=== PATIENT | female | born 1990 | race Caucasian/White ===

== ENCOUNTER 2019-08-29 19:29 | Inpatient (IN) | payer MEDICAID, SELFPAY ==
[2019-08-29] VITALS (11 sets, daily range): BP systolic 0–185; BP diastolic 0–129; PULSE 66–110; RESP 16–18; TEMP 36.9–37.1; BMI 37.1
[2019-08-29 19:44] LABS: Basophils % 0.2 %; Eosinophils # 0.1 10^3/uL (0.0-0.8); Eosinophils % 0.6 %; Hematocrit 36.9 % (37.0-47.0); Hemoglobin 12.2 g/dL (11.5-15.3); Lymphocytes # 2.2 10^3/uL (0.8-4.8); Lymphocytes % 18.3 %; Mean Corpuscular HGB Conc 33.1 g/dL (30.0-36.0); Mean Corpuscular Hemoglobin 29.3 pg (28.0-34.0); Mean Corpuscular Volume 88.7 fL (81-99); Mean Platelet Volume 11.1 fL (7.4-10.4); Monocytes # 0.8 10^3/uL (0.2-0.9); Monocytes % 6.7 %; Neutrophils # 8.8 10^3/uL (1.8-7.7); Neutrophils % 73.8 %; Nucleated Red Blood Cells % 0 %; Platelet Count 266 10^3/cmm (130-400); Red Blood Count 4.16 10^6/uL (4.1-5.3); Red Cell Distribution Width 14.6 % (12.1-15.1); White Blood Count 11.9 10^3/uL (4.0-10.0)
[2019-08-29] MEDS: lactated ringers 1,000 ML 999 ML IV (19:56)
[2019-08-29] MEDS: ampicillin 2,000 MG in sodium chloride 0.9% (plus) 50 ML 100 MG IV (20:00)
[2019-08-29 20:01] LABS: Amphetamines Screen Urine Positive (Negative); Barbiturates Screen Urine Negative (Negative); Benzodiazepines Screen Urine Negative (Negative); Cocaine Screen Urine Negative (Negative); Opiate Screen Urine Positive (Negative); PCP Screen Urine Negative (Negative); THC Screen Urine Negative (Negative)
[2019-08-29] MEDS: miSOPROStol 200 mcg Tablet 800 MCG PR (21:22)
--- NOTE | 2019-08-29 21:39 | PM.DELIVERY ---
 Delivery Note: Date of delivery: August 29, 2019 This 29-year-old 5 now para 3 female with a paucity of care had spontaneous rupture membranes at home at approximately 1830. She arrived [facility] labor delivery and was found to be approximately 6 cm dilated with some moderate amount of bloody show. This physician was called and arrived and found her to be about 7 cm dilated with moderate bloody show. heart tones at that time looked reassuring. The patient desired epidural anesthesia but was unable to receive epidural anesthesia prior to dilating to complete cervical dilatation. The patient was found to be completely dilated at 2013 and delivered very quickly at 2014. The patient delivered in the bed prior to breaking down the bed as it happened very quickly. However, this physician was just outside and and arrived as the head was delivered. This physician delivered the remainder of the infant and suctioning the infant. The 8 pound 13 ounce female cried initially and was placed on mother's abdomen. However, the was brought directly over to the warmer immediately after the cord was cut. Infant Apgars were 5 and 6 and 7 at 1, 5 and 10 minutes respectively. The infant cried vigorously with stimulation but oxygen saturation was difficult to bring up. Approximately 6 mL of a bloody fluid was suctioned from the at the warmer. Mom did not tolerate much examination but there was no obvious tear seen. The placenta delivered spontaneously at 2026. There appeared to be possibly a little bit of hemorrhage around the margin of the placenta. The was brought to the nursery where she continues to be evaluated. Mom has had a mild bit of bleeding and was given misoprostol 800 mcg rectally. Pre-Delivery Course: This patient had very poor care. She was initially seen in [place] and then was later seen at [facility] for 1-2 visits. She was then seen by Dr. Irizarry at [facility] for 2 visits and then missed 2 appointments and was fired. As she was 38-1/2 weeks and was willing to come in and see me I saw this patient on Friday with an ultrasound and everything appeared to be doing well. records were then sent to [facility]. She had spontaneous rupture membranes this evening and delivered in less than 2 hours. Patient's urine drug screen was negative at the clinic last month but was positive on admission to the hospital here for methamphetamine and opiates. She states that she was taking hydrocodone 7.5 mg 3 times daily routinely. I am not sure where she gets those medications. She was on Keppra 500 mg in the morning and 750 mg in the evening for a known seizure disorder. Delivery: Precipitous spontaneous vaginal delivery. This physician was in attendance. Post-Delivery Status: Patient has had some moderate bleeding and was given misoprostol 800 mcg rectally x1. A&P Assessment and plan (1) Spontaneous vaginal delivery: Patient will be monitored closely for bleeding and will follow routine care. Urine drug screen will be sent for verification testing. Status: Acute (2) History of inadequate care: No adequate explanation as to lack of care. Status: Acute (3) Drug abuse and dependence: Drug screen was positive for methamphetamine and opiates here. We will send urine out for verification testing. Status: Acute (4) Seizure disorder during , delivered: Will continue her Keppra 500 mg in the morning and 750 mg in the evening. Status: Acute Coding Level of Care Code Acute Computer Peripheral Equipment Operator for [facility] Fwd Diagnoses Spontaneous vaginal delivery O80 History of inadequate care O09.30 Drug abuse and dependence F19.20 Seizure disorder during , delivered O99.354; G40.909
[2019-08-29] MEDS: HYDROcodone-acetaminophen 7.5-325 mg Tablet PO (21:53)
[2019-08-29] MEDS: hyDROXYzine 25 mg Capsule 50 MG PO (23:18)
--- NOTE | 2019-08-30 00:48 | PC.NURSE ---
Pt. has a history of drug abuse.
[2019-08-30 01:20] VITALS: BP 114/78; PULSE 84; RESP 16; TEMP 37
--- NOTE | 2019-08-30 01:24 | PC.NURSE ---
Pt. had hemorrhage post delivery of 1st baby.
[2019-08-30 02:20] VITALS: BP 135/82; PULSE 75; RESP 18; TEMP 36.8
--- NOTE | 2019-08-30 03:55 | PC.NURSE ---
This nurse to room to have patient sign AMA paperwork. IV discontinued. AR RN
--- NOTE | 2019-08-30 04:05 | PC.NURSE ---
08/30/2019 @ 0345 RN to room to ask patient about current case packer and sealer and open DFS cases. Patient denies having a case packer and sealer. Advised patient records indicate in court process for other children. Mother states Fuck this, Skipper, wake up we're leaving. I'm not staying here. Take this IV out of my fucking arm. RN responded You don't get to curse at me. I will call Dr Guzman and the warehouse distribution specialist and let you speak to them. Mother states, You can call them and you can beat feet out of my room to do it, bitch. Take this fucking IV out of my arm. RN advised patient, I won't take the IV out until I have spoken to Dr Guzman. 08/30/2019 @[address] Guzman and advised patient was requesting to have IV discontinued and to leave at this time. Advised Dr Guzman that patient was cursing RN and becoming increasingly agitated. Dr Guzman states to discontinue IV and have patient sign AMA form if she will. college associate, Software Security Architect and Dr Guzman all notified. Software Security Architect has Security come to OB floor to escort patient and FOB off unit after AMA form is signed.
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
--- NOTE | 2019-08-30 06:12 | PC.NURSE ---
Pt. left AMA and I was unable to get a set of VS prior to discharge.
--- NOTE | 2019-09-08 11:04 | P.DS_ITS ---
Discharge Providers SOLUTION COORDINATOR Date of Admission: 08/29/19 19:29 Date of Discharge: 09/08/19 Attending Provider at Admission: Sundar Guzman MD Attending Provider at Discharge: Sundar Guzman MD Primary Care Provider: Sarah Douglas DO Diagnoses at Discharge Discharge Diagnosis (1) Spontaneous vaginal delivery: Status: Acute Problem details: Patient delivered without significant problem after spontaneous onset of labor. She has done well with mild lochia. She signed out plating tank operator apprentice of discharge against medical advice. (2) History of inadequate care: Status: Acute Problem details: Patient had no significant problem with labor and delivery. The infant, however had some persistant respiratory distress and required transfer to [facility] [place]. (3) Drug abuse and dependence: Status: Acute Problem details: Patient tested positive for opiates and methamphetamine and was thus reported to family services. She became defensive when questioned by nursing staff and signed out AMA. (4) Seizure disorder during , delivered: Status: Acute Problem details: stable on meds. Reason for Visit Reason for Visit: Reason For Visit: abd pain Hospital Course Hospital Course: Patient delivered by spontaneous vaginal delivery without difficulties. She had a mildly atonic uterus that was treated with Misoprostel rectally. She was doing well otherwise. As described above, she became angry with questioning and left against medical advice. Information Peripartum Data: Delivery Method: Vaginal Physical Exam Narrative: EXAM NARRATIVE: Exam was not done immediately prior to discharge due to the patient signing out AMA. Discharge Data Data Completed and Pending: Completed Studies During Hospitalization Category Date Time Status Pathology: Surgic al [PTH] Routine Pth 08/30/19 07:40 Completed Pending at discharge Category Date Time Status Methamphetamines Screen Urine Routi ne Lab 08/29/19 07:48 Ordered Vitals: Last Vital Signs Temp 98.3 F 08/30/19 02:20 Pulse 75 08/30/19 02:20 Resp 18 08/30/19 02:20 BP 135/82 08/30/19 02:20 Discharge Plan Discharge Patient Disposition: Home, Self-Care Prescriptions: No Action Keppra 500 mg Tablet 500 mg PO QAM RF: 0 Keppra 750 mg Tablet 750 mg PO BEDTIME RF: 0 28 mg iron- 800 mcg Tablet PO DAILY RF: 0 hydrocodone-acetaminophen 7.5-325 mg Tablet 1 tab PO QID PRN (Reason: Pain) RF: 0 Patient Instructions: Perineal Care (DC) Discharge Date/Time: 08/30/19 04:00 Discharge Attestations SOLUTION COORDINATOR Time Spent in Discharge Care*: less than 30 min Specific Discharge Activities: Specific discharge activities: docu menting/other paperwork Coding Level of Care Code Acute Break And Load Operator for [facility] Fwd Diagnoses Spontaneous vaginal delivery O80 History of inadequate care O09.30 Drug abuse and dependence F19.20 Seizure disorder during , delivered O99.354; G40.909
== END 2019-08-30 04:00 | disposition home or self-care (01) | DRG 806 ==
LOC: OPOB 19:29
PROVIDERS: Admitting Provider Family Medicine; Family Provider Family Medicine; PCP Family Medicine; Visit Provider Family Medicine
DX: O62.3 Precipitate labor (principal); O99.324 Drug use complicating childbirth; Z37.0 Single live birth; Z3A.38 38 weeks gestation of pregnancy; F11.229 Opioid dependence with intoxication, unspecified; O67.8 Other intrapartum hemorrhage
CPT/HCPCS: 12345; 59409; 80306; 80359; 85025; 88307; 99211; J0290

== ENCOUNTER 2019-09-09 19:58 | Emergency (ER) | payer MEDICAID, SELFPAY | END 2019-09-10 01:31 | disposition admitted as inpatient to this hospital (09) | LOC: ER 09-10 07:04 | PROVIDERS: Emergency Provider Emergency Medicine; Family Provider Family Medicine | DX: O72.2 Delayed and secondary postpartum hemorrhage (principal); F17.210 Nicotine dependence, cigarettes, uncomplicated | CPT/HCPCS: 36415; 76856; 85025; 86850; 86900; 96361; 96374; 96375; 99283; 99285; J2270; J2405; J7030 ==

== ENCOUNTER 2019-09-09 19:58 | Inpatient (IN) | payer MEDICAID, SELFPAY ==
[2019-09-09] VITALS (19 sets, daily range): BP systolic 145–177; BP diastolic 94–128; PULSE 86–106; RESP 11–24; TEMP 36.8; O2SAT 95–99; BMI 35.2
--- NOTE | 2019-09-09 20:03 | USR_ITS ---
PROCEDURE INFORMATION: Exam: US Pelvis Complete, Transabdominal and US Duplex Artery and Vein, Ovaries, Complete Exam date and time: 09/09/2019 9:29 PM Age: 29 years old Clinical indication: Other: Vag bleeding with large clots; Patient HX: 10 day post part TECHNIQUE: Imaging protocol: Real-time transabdominal pelvic ultrasound with image documentation. Real-time duplex ultrasound scan of the arterial and venous flow of the ovaries with B-mode, color Doppler flow and spectral waveform analysis. Complete Pelvis, Complete Duplex. COMPARISON: US BPP w/o NST [id number] 03/03/2018 4:58 PM FINDINGS: Uterus/cervix: The uterus measures 11.2 x 6.9 x 7.7 cm. There is heterogeneous echogenicity within the endometrial cavity. There is fluid in soft tissue echogenicity with a complex appearance concerning for blood clots/retained products of conception. This measures 2.1 x 9.6 cm. Right adnexa: The right ovary measures 2.9 x 2.1 x 2.2 cm. The right ovary is unremarkable. Doppler evaluation of the right ovary was performed and demonstrates good arterial and venous flow. No torsion. Left adnexa: The left ovary measures 2.8 by 2.0 x 2.3 cm. The left ovary is unremarkable in appearance. Doppler evaluation left ovary was performed and demonstrates good arterial and venous flow. No torsion. Free fluid: No free fluid in the pelvis. Bladder: Normal. US/US pelvic complete* [id number] IMPRESSION: 1. Heterogeneous fluid and soft tissue density distending the endometrial cavity concerning for retained products of conception/blood clots. 2. Unremarkable ovaries. No torsion.
--- NOTE | 2019-09-09 20:10 | W.ED.FEMALGU ---
HPI - Female Genitourinary General: Chief complaint: Urogenital-Female Stated complaint: VAG HEM Time Seen by Provider: 09/09/19 20:10 Source: patient and EMS Mode of arrival: EMS Limitations: physical limitation History of Present Illness: HPI Narrative: 29-year-old female who gave August 28 vaginally states over the last 2 days she has had heavy bleeding. She states she is went through roughly 12 pads and is been passing clots. She has had abdominal cramping as well. She denies any worsening improving factors. MD elicited complaint: vaginal bleeding Onset (ago): day(s) Severity: moderate Vaginal discharge: none Vaginal bleeding: moderate Exacerbating factors: none Relieving factors: none Associated symptoms: Reports abdominal pain; Deny headache(s) or nausea Review of Systems Const: Denies: fever, chills, body aches or change in appetite Eyes: Denies: blurry vision or eye discomfort ENMT: Denies: throat pain or dental pain Card: Denies: chest pain Resp: Denies: shortness of breath GI: Reports: abdominal pain; Denies: nausea, vomiting or diarrhea : Reports: vaginal bleeding; Denies: painful urination Musc: Denies: neck pain or back pain Skin/Breast: Denies: rash Neuro: Denies: headache Psych: Denies: depression Kunal/Lymph: Denies: easy bruising All/Imm: Denies: hives PFSH ED PFSH: Social History Smoking and tobacco status: current every day smoker Physical Exam Const: COMMON NORMALS: no apparent distress, oriented x3 and healthy appearing HENMT: COMMON NORMALS: normocephalic and head/scalp atraumatic HEAD & SCALP: normocephalic and atraumatic Eye: COMMON NORMALS: PERRL and EOMs intact bilaterally PUPIL: Yes PERRL Neck/C-Spine: COMMON NORMALS: full ROM and supple Chest: COMMONS NORMALS: inspection of chest normal and palpation of chest normal Resp: COMMON NORMALS: normal respiratory effort, no retractions, no use of accessory muscles and clear to auscultation bilaterally AUSCULTATION: clear to auscultation bilaterally Cardio: COMMON NORMALS: regular rate, regular rhythm and no murmurs RATE: regular rate RHYTHM: regular rhythm GI: COMMON NORMALS: normal to inspection, nondistended, normoactive bowel sounds, soft to palpation, non-tender and no masses PALPATION: Yes soft Extremity: COMMON NORMALS: normal to inspection and full ROM Neuro: COMMON NORMALS: oriented x3, moves all extremities and no focal motor deficits Psych: COMMON NORMALS: mental status grossly normal, thought process normal and cooperative THOUGHT PROCESS: normal thought process Skin: COMMON NORMALS: no rashes or lesions noted and no wounds GENERAL SKIN EXAM: no rashes or lesions noted Course Vital Signs: Vital signs: Vital Signs Temperature 98.2 F 09/09/19 20:01 Pulse Rate 88 09/09/19 21:36 Respiratory Rate 16 09/09/19 21:36 Blood Pressure 157/98 09/09/19 21:36 Pulse Oximetry 97 09/09/19 21:36 MDM - Female MDM Narrative: Medical decision making narrative: Patient presents here with vaginal bleeding with ultrasound showing possible retained products. Patient is hemodynamically stable. I spoke to her physician Dr. Guzman who recommended OB admission for D&C. I did speak to Dr. Ag who will admit Trinity. Patient has been stable while down here. Lab Data: Labs: Lab Results 09/09/19 Range/Units 20:00 WBC 9.9 (4.0-10.0) 10^3/ uL RBC 4.22 (4.1-5.3) 10^6/u L Hgb 12.0 (11.5-15.3) g/dL Hct 37.4 (37.0-47.0) % MCV 88.6 (81-99) fL MCH 28.4 (28.0-34.0) pg MCHC 32.1 (30.0-36.0) g/dL RDW 13.7 (12.1-15.1) % Plt Count 427 H (130-400) 10^3/c mm MPV 9.5 (7.4-10.4) fL Neut % (Auto) 65.6 % Lymph % (Auto) 23.1 % [place] % (Auto) 9.4 % Eos % (Auto) 1.2 % Baso % (Auto) 0.3 % Neut # (Auto) 6.5 (1.8-7.7) 10^3/u L Lymph # (Auto) 2.3 (0.8-4.8) 10^3/u L [place] # (Auto) 0.9 (0.2-0.9) 10^3/u L Eos # (Auto) 0.1 (0.0-0.8) 10^3/u L Baso # (Auto) 0.0 (0.0-0.1) 10^3/u L Nucleated RBC % (a uto) 0 % Nucleated RBCs # 0.0 /100WBC Imaging Data: US OB: Radiologist's impression: [address] [address] Ultrasound Report Signed Patient: Trinity Chao Unit #: [id number] : 1990 Age/Sex: 29 / F ADM Date: 09/09/19 Loc: ER Room/Bed: Attending Dr: Ordering Provider/Ordering MD: Duyen Figueroa MD Date of Service: 09/09/19 Procedure(s): US pelvic complete* [id number] Accession Number(s): [id number] Report Number: [id number] PROCEDURE INFORMATION: Exam: US Pelvis Complete, Transabdominal and US Duplex Artery and Vein, Ovaries, Complete Exam date and time: 09/09/2019 9:29 PM Age: 29 years old Clinical indication: Other: Vag bleeding with large clots; Patient HX: 10 day post part TECHNIQUE: Imaging protocol: Real-time transabdominal pelvic ultrasound with image documentation. Real-time duplex ultrasound scan of the arterial and venous flow of the ovaries with B-mode, color Doppler flow and spectral waveform analysis. Complete Pelvis, Complete Duplex. COMPARISON: US BPP w/o NST [id number] 03/03/2018 4:58 PM FINDINGS: Uterus/cervix: The uterus measures 11.2 x 6.9 x 7.7 cm. There is heterogeneous echogenicity within the endometrial cavity. There is fluid in soft tissue echogenicity with a complex appearance concerning for blood clots/retained products of conception. This measures 2.1 x 9.6 cm. Right adnexa: The right ovary measures 2.9 x 2.1 x 2.2 cm. The right ovary is unremarkable. Doppler evaluation of the right ovary was performed and demonstrates good arterial and venous flow. No torsion. Left adnexa: The left ovary measures 2.8 by 2.0 x 2.3 cm. The left ovary is unremarkable in appearance. Doppler evaluation left ovary was performed and demonstrates good arterial and venous flow. No torsion. Free fluid: No free fluid in the pelvis. Bladder: Normal. US/US pelvic complete* [id number] IMPRESSION: 1. Heterogeneous fluid and soft tissue density distending the endometrial cavity concerning for retained products of conception/blood clots. 2. Unremarkable ovaries. No torsion. Discharge Plan Discharge Patient Disposition: Admitted As Inpatient Clinical Impression: Retained products of conception Condition: Stable Referrals: Mackenzie Holley DO [Family Provider] - Coding Level of Care Code ED Volunteer Specialist for [facility] Fwd Exam Comprehensive
[2019-09-09 20:12] LABS: Basophils % 0.3 %; Eosinophils # 0.1 10^3/uL (0.0-0.8); Eosinophils % 1.2 %; Hematocrit 37.4 % (37.0-47.0); Lymphocytes # 2.3 10^3/uL (0.8-4.8); Lymphocytes % 23.1 %; Mean Corpuscular HGB Conc 32.1 g/dL (30.0-36.0); Mean Corpuscular Hemoglobin 28.4 pg (28.0-34.0); Mean Corpuscular Volume 88.6 fL (81-99); Mean Platelet Volume 9.5 fL (7.4-10.4); Monocytes # 0.9 10^3/uL (0.2-0.9); Monocytes % 9.4 %; Neutrophils # 6.5 10^3/uL (1.8-7.7); Neutrophils % 65.6 %; Nucleated Red Blood Cells % 0 %; Platelet Count 427 10^3/cmm (130-400); Red Blood Count 4.22 10^6/uL (4.1-5.3); Red Cell Distribution Width 13.7 % (12.1-15.1); White Blood Count 9.9 10^3/uL (4.0-10.0)
[2019-09-09] MEDS: morphine 4 mg/mL SDV 1 mL IVP (20:21)
[2019-09-09] MEDS: ondansetron 2 mg/ML SDV 2 mL 4 MG IVP (20:22)
[2019-09-09] MEDS: sodium chloride 0.9% 1,000 ML 999 ML IV (20:22)
--- NOTE | 2019-09-09 21:55 | PC.NURSE ---
Pt provided with Apple juice.
[2019-09-10] VITALS (19 sets, daily range): BP systolic 101–171; BP diastolic 67–128; PULSE 79–99; RESP 10–26; TEMP 36.7–37; O2SAT 97–100
[2019-09-10] MEDS: morphine 4 mg/mL SDV 1 mL IVP (02:31)
[2019-09-10] MEDS: lactated ringers 1,000 ML 100 ML IV (02:31)
[2019-09-10 04:55] LABS: Basophils % 0.3 %; Eosinophils # 0.1 10^3/uL (0.0-0.8); Eosinophils % 1.6 %; Hematocrit 36.4 % (37.0-47.0); Hemoglobin 11.4 g/dL (11.5-15.3); Lymphocytes % 27.1 %; Mean Corpuscular HGB Conc 31.3 g/dL (30.0-36.0); Mean Corpuscular Hemoglobin 28.6 pg (28.0-34.0); Mean Corpuscular Volume 91.2 fL (81-99); Mean Platelet Volume 9.4 fL (7.4-10.4); Monocytes # 0.7 10^3/uL (0.2-0.9); Monocytes % 9.7 %; Neutrophils # 4.6 10^3/uL (1.8-7.7); Nucleated Red Blood Cells % 0 %; Platelet Count 310 10^3/cmm (130-400); Red Blood Count 3.99 10^6/uL (4.1-5.3); Red Cell Distribution Width 13.6 % (12.1-15.1); White Blood Count 7.5 10^3/uL (4.0-10.0)
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
== END 2019-09-10 07:00 | disposition left against medical advice (07) | DRG 776 ==
LOC: ER 21:48 → MEDSURG 22:57
PROVIDERS: Admitting Provider Obstetrics & Gynecology; Emergency Provider Emergency Medicine; Family Provider Family Medicine; Visit Provider Obstetrics & Gynecology
DX: O72.1 Other immediate postpartum hemorrhage (principal); O99.335 Smoking (tobacco) complicating the puerperium; F17.210 Nicotine dependence, cigarettes, uncomplicated
CPT/HCPCS: 12345; 36415; 76856; 85025; 86850; 86900; 96374; 96375; 99283; A9270; J2270; J2405; J7030

== ENCOUNTER 2019-09-10 13:53 | Emergency (ER) | payer MEDICAID, SELFPAY ==
[2019-09-10 14:09] VITALS: BP 140/84; PULSE 103; RESP 18; TEMP 36.7; O2SAT 99; BMI 35.2
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
[2019-09-10 15:27] LABS: Basophils % 0.3 %; Eosinophils # 0.1 10^3/uL (0.0-0.8); Eosinophils % 1.8 %; Hemoglobin 11.3 g/dL (11.5-15.3); Lymphocytes # 1.3 10^3/uL (0.8-4.8); Mean Corpuscular HGB Conc 31.4 g/dL (30.0-36.0); Mean Corpuscular Hemoglobin 28.3 pg (28.0-34.0); Mean Platelet Volume 9.3 fL (7.4-10.4); Monocytes # 0.7 10^3/uL (0.2-0.9); Monocytes % 8.3 %; Neutrophils # 5.7 10^3/uL (1.8-7.7); Neutrophils % 72.2 %; Nucleated Red Blood Cells % 0 %; Platelet Count 317 10^3/cmm (130-400); Red Cell Distribution Width 13.5 % (12.1-15.1); White Blood Count 7.8 10^3/uL (4.0-10.0)
[2019-09-10 15:40] LABS: Alanine Aminotransferase 18 U/L (0-33); Albumin Level 3.9 g/dL (3.5-5.2); Alkaline Phosphatase 114 IU/L (35-105); Anion Gap 16.8 (5-19); Aspartate Amino Transferase 16 U/L (0-32); Blood Urea Nitrogen 11 mg/dL (6-20); Carbon Dioxide 25 mmol/L (22-29); Chloride 99 mmol/L (98-107); Glomerular Filtration Rate 119.9 mL/min (90-130); Glucose 91 mg/dL (65-115); Osmolality Calculated 280 mOsm/kg (285-295); Potassium 3.8 mmol/L (3.5-5.1); Sodium 137 mmol/L (136-145); Total Bilirubin 0.7 mg/dL (0.15-1.2); Total Protein 6.9 g/dL (6.6-8.7)
--- NOTE | 2019-09-10 16:22 | PC.NURSE ---
went into patients room to obtain iv access, pt was putting coat on, talking on the phone and told me to hold on. I advised the patient that i needed to obtain an iv. pt started to grab her bag, still on the phone. pt told me to hold on, while on the phone she referred to this nurse as this complete fucking idiot nurse is here trying to bother me . she grabbed her belongings and started to walk out the door. while walking down the hallway, she told me to go suck a rosa marilyn benitez as she walked down the suárez.
== END 2019-09-10 16:20 | disposition still patient (30) ==
PROVIDERS: Emergency Provider Nurse Practitioner Family; Family Provider Family Medicine; PCP Family Medicine
DX: O72.2 Delayed and secondary postpartum hemorrhage (principal); Z53.21 Procedure and treatment not carried out due to patient leaving prior to being seen by health care provider
CPT/HCPCS: 36415; 80053; 85025; 99281

== ENCOUNTER 2019-10-08 09:32 | Emergency (ER) | payer MEDICAID, SELFPAY ==
[2019-10-08 09:33] VITALS: BP 131/75; PULSE 95; RESP 18; TEMP 37.1; O2SAT 97; BMI 33.9
--- NOTE | 2019-10-08 09:43 | W.ED.OVERDOS ---
HPI - Overdose General: Chief Complaint: Overdose Stated Complaint: OVERDOSE Time Seen by Provider: 10/08/19 09:40 Source: patient Mode of arrival: EMS Limitations: no limitations History of Present Illness: HPI Narrative: Patient is a 29-year-old female brought in by EMS for complaints of an overdose. Patient tells me approximately 30 minutes ago she took a fentanyl/heroin pill. Patient states she has a longstanding history of narcotic abuse. She admitted to RN before my exam that she uses methamphetamines daily as well. Upon arrival patient is alert and oriented however does appear drowsy. She did not take pill in a suicide or self harming attempt. She states she was told by a friend it was a happy pill . complaint: other (took heroin/fentanyl pill ) Onset (ago): minute(s) : Context: Accidental Overdose: wanted to get high Treatments Prior to Arrival: none Review of Systems Const: Denies: fever(s) or chills Eyes: Denies: change in vision, blurry vision, photophobia, floaters or seeing flashes Card: Reports: chest pain; Denies: palpitations, irregular heart rhythm, lightheadedness, syncope or dyspnea on exertion Resp: Denies: dyspnea, productive cough or pain on inspiration GI: Denies: abdominal pain, nausea, vomiting, heartburn or diarrhea : Denies: flank pain or dysuria Musc: Denies: neck pain, back pain or joint pain Skin/Breast: Denies: rash Neuro: Reports: other (drowsiness ); Denies: headache(s), numbness in extremities, weakness in extremities or sensory changes PFS ED PFSH: Social History Smoking and tobacco status: current every day smoker Physical Exam Const: COMMON NORMALS: no acute distress, patient oriented x3 and alert GENERAL APPEARANCE: cooperative ORIENTATION/CONSCIOUSNESS: Yes awake, Yes oriented to person, Yes oriented to place and Yes oriented to time OTHER: drowsy but answering questions appropriately HENMT: COMMON NORMALS: normocephalic and atraumatic HEAD & SCALP: normocephalic and atraumatic Resp: COMMON NORMALS: normal respiratory effort and clear to auscultation bilaterally AUSCULTATION: clear to auscultation bilaterally Cardio: COMMON NORMALS: regular rate and regular rhythm RATE: regular rate RHYTHM: regular rhythm GI: COMMON NORMALS: Normal to inspection, nondistended, normoactive bowel sounds present, Soft to palpation, non-tender, No hepatosplenomegaly present and no masses PALPATION: Yes Soft to palpation and Yes No hepatosplenomegaly present Extremity: COMMON NORMALS: normal to inspection Neuro: MALKA COMA SCALE: document GCS findings [place] coma scale eye opening: Spontaneous [place] coma scale verbal response: Orientated [place] coma scale motor response: Obey commands [place] coma scale total score: 15 COMMON NORMALS: patient oriented x3, CN's II-XII intact bilaterally, moves all extremities, no focal motor deficits and no sensory deficits noted SENSORIUM/ORIENTATION: Yes alert, Yes oriented to person, Yes oriented to place and Yes oriented to time Skin: COMMON NORMALS: no rashes or lesions noted GENERAL SKIN EXAM: no rashes or lesions noted Course Vital Signs: Vital signs: Vital Signs Temperature 98.7 F 10/08/19 09:33 Pulse Rate 109 H 10/08/19 10:18 Respiratory Rate 17 10/08/19 10:18 Blood Pressure 133/83 10/08/19 10:18 Pulse Oximetry 100 10/08/19 10:18 MDM - Overdose MDM Narrative: Medical decision making narrative: Patient was given Narcan and shortly after ripped out her IV and eloped from the ED. I was unaware of this until patient was already gone. Discharge Plan Discharge Patient Disposition: Left Against Medical Advice Clinical Impression: Opiate abuse, episodic Prescriptions: No Action levetiracetam [Keppra] 500 mg Tablet 500 mg PO QAM RF: 0 levetiracetam [Keppra] 750 mg Tablet 750 mg PO BEDTIME RF: 0 PNV cmb#95-ferrous fumarate-FA [] 28 mg iron- 800 mcg Tablet 1 tab PO DAILY RF: 0 Advair Diskus 250-50 mcg/dose Blister With Device 1 inh INHALATION BID RF: 0 alprazolam 0.5 mg tablet See Rx Instructions .ROUTE .COMPLEX RF: 0 ziprasidone HCl 40 mg capsule 40 mg PO BID RF: 0 Ventolin HFA 90 mcg/actuation Hfa Aerosol Inhaler 2 puff INHALATION Q4H PRN (Reason: Shortness Of Breath) RF: 0 cranberry 1 - 2 tab PO PRN RF: 0 Referrals: Mackenzie Holley DO [Primary Care Provider] - Interventions: ED Discharge Assessment Last Done: 10/08/19 10:30 ED Charges Last Done: 10/08/19 10:30 Discharge Date/Time: 10/08/19 10:30 Coding Level of Care Code ED Supervisor [employer] for Alessandro Treviño
[2019-10-08] MEDS: naloxone 0.4 mg/ml SDV IVP (10:14)
[2019-10-08] MEDS: sodium chloride 0.9% 1,000 ML 999 ML IV (10:14)
[2019-10-08 10:18] VITALS: BP 133/83; PULSE 109; RESP 17; O2SAT 100
[2019-10-13 14:40] LABS: Levetiracetam Keppra 10.7 mcg/mL
== END 2019-10-08 10:30 | disposition left against medical advice (07) ==
LOC: ER 10:28
PROVIDERS: Emergency Provider Physician Assistant; Family Provider Family Medicine; PCP Family Medicine
DX: F11.10 Opioid abuse, uncomplicated (principal); Z53.21 Procedure and treatment not carried out due to patient leaving prior to being seen by health care provider; F17.210 Nicotine dependence, cigarettes, uncomplicated
CPT/HCPCS: 12345; 80177; 85025; 96361; 96374; 96375; 99282; 99284; J2310; J7030

== ENCOUNTER 2021-08-28 13:08 | Emergency (ER) | payer MEDICAID, SELFPAY ==
[2021-08-28 13:25] VITALS: BP 157/85; PULSE 99; RESP 18; TEMP 36.8; O2SAT 97; BMI 32.5
--- NOTE | 2021-08-28 14:17 | CT_ITS ---
WS: [id number] CT FACIAL BONES HISTORY: trauma TECHNIQUE: Images obtained from the supraorbital location through the mandible. Soft tissue and bone windows are reviewed. Coronal and sagittal reformats have also been submitted. DLP: 744.[address] scans at [facility] use at least one of these dose optimization techniques: automated e xposure control; mA and/or kV adjustment per patient size (includes targeted exams where dose is matc hed to clinical indication); or iterative reconstruction. COMPARISON: None available. Nondisplaced small avulsion fracture from the anterior nasal spine. The nasal bones are intact. Very slight rightward curvature of the nasal septum with spurring. Zygomatic arches are intact. There is a lucency through the anterior maxilla but I believe this is well-corticated and not a fracture. Media l and lateral pterygoid plates are intact. No air-fluid levels within the sinuses. Normal optic nerves, globes and orbits. CT/CT facial bones wo con* [id number] IMPRESSION: 1. Small avulsion fractures from the anterior nasal spine. 2. No nasal bone fractures.
--- NOTE | 2021-08-28 14:18 | ED_ITS ---
HPI - Fall General: Chief Complaint: Head Injury Stated Complaint: facial injuries due to seizure on 08/25/21 Time Seen by Provider: 08/28/21 13:35 Source: patient Mode of arrival: ambulatory Limitations: no limitations History of Present Illness: Patient is a 31-year-old female presents to ED today for evaluation of facial trauma. Patient tells me 2 days ago she had a seizure and believes she struck her face when she fell/lost consciousness. Patient states she does have a history of epilepsy that she treats with [place]. She states prior to 2 days ago she had not had a seizure in many years. She is not had any changes to her medications recently. She states she was being followed with neurology but does not have a neurologist here in town. She does not complain of a headache, neck pain, back pain. She states she has noticed swelling to the right side of her face and nose. MD complaint: fall Onset (ago): day(s) Fall from: standing Fall witnessed: no Place fall occurred: home Loss of consciousness: Yes Length of LOC: second(s) Prolonged down time: no Symptoms prior to fall: other (siezure) Context: seizure Location of injury: face Associated symptoms-after fall: Reports no associated symptoms; Denies abdominal pain, chest pain, headache(s), lightheadedness or neck pain Review of Systems Const: Denies: fever(s), chills or body aches Eyes: Denies: change in vision, blurry vision, photophobia, floaters or seeing flashes ENMT: Reports: sinus pain; Denies: ear or mastoid pain, ear discharge, change in hearing, nasal discharge, nasal congestion, epistaxis or post nasal drip Card: Denies: chest pain, palpitations, irregular heart rhythm, edema, lightheadedness, syncope or pre-syncope Resp: Denies: dyspnea GI: Denies: abdominal pain, nausea or vomiting Musc: Denies: neck pain, back pain, extremity pain or joint pain Skin/Breast: Denies: rash Neuro: Denies: headache(s), numbness in extremities, weakness in extremities, sensory changes or dizziness PFS ED PFSH: Social History Smoking and tobacco status: current every day smoker Physical Exam Const: COMMON NORMALS: no acute distress, patient oriented x3, no limitations and alert NUTRITIONAL APPEARANCE: overweight ORIENTATION/CONSCIOUSNESS: Yes awake, Yes oriented to person, Yes oriented to place and Yes oriented to time HENMT: COMMON NORMALS: normocephalic, atraumatic, external ears normal, EAC's normal and TM's normal bilaterally HEAD & SCALP: normal to inspection, normocephalic and atraumatic FACE & SINUS: other (TTP R inferior orbital wall, R maxillary region, and nose; mild swelling) NOSE: Normal septum present and Other nasal findings present (swelling to external nasal bridge; no septal hematoma) EXTERNAL EAR: Yes external ears normal EXTERNAL AUDITORY CANAL: EAC's normal TYMPANIC MEMBRANE: TM's normal bilaterally MOUTH: Normal oral and palatal mucosa present, tongue normal and other (mild swelling to upper lip; no intraoral trauma noted ) TEETH & GINGIVA: Yes poor dentition Eye: COMMON NORMALS: Equal, round and reactive pupils present and EOMs intact bilaterally GENERAL EYE: appearance normal, both eyes and all related structures PUPIL: Yes Equal, round and reactive pupils present Neck/C-Spine: COMMON NORMALS: full ROM CERVICAL SPINE: Yes cervical ROM normal, No pain with cervical ROM, No Cervical spine tenderness, No step off deformity and No Paracervical muscle tenderness Chest: COMMONS NORMALS: normal inspection of the chest and normal palpation of entire chest wall Resp: COMMON NORMALS: normal respiratory effort and clear to auscultation bilaterally AUSCULTATION: clear to auscultation bilaterally Cardio: COMMON NORMALS: regular rate and regular rhythm RATE: regular rate RHYTHM: regular rhythm Back/Pelvis: COMMON NORMALS: thoracic and lumbar spine normal to inspection, no thoracic nor lumbar tenderness and thoraco-lumbar ROM normal Extremity: COMMON NORMALS: normal to inspection and full ROM GENERAL: Yes normal exam except as noted Neuro: EDEL COMA SCALE: document GCS findings [place] coma scale eye opening: Spontaneous [place] coma scale verbal response: Orientated [place] coma scale motor response: Obey commands [place] coma scale total score: 15 COMMON NORMALS: patient oriented x3, CN's II-XII intact bilaterally, moves all extremities, no focal motor deficits, no sensory deficits noted and gait normal SENSORIUM/ORIENTATION: Yes alert, Yes oriented to person, Yes oriented to place and Yes oriented to time Skin: COMMON NORMALS: no rashes or lesions noted GENERAL SKIN EXAM: no rashes or lesions noted TRAUMA: no lacerations or abrasions Course Vital Signs: Vital signs: Vital Signs Temperature 98.3 F 08/28/21 13:25 Pulse Rate 99 08/28/21 13:25 Respiratory Rate 18 08/28/21 13:25 Blood Pressure 157/85 08/28/21 13:25 Pulse Oximetry 97 08/28/21 13:25 MDM - Fall Medical Decision Making We will place case management referral to get her set up with a neurologist here in town for other evaluation/treatment of her seizures. CT scan shows a small avulsion fracture of the anterior nasal spine. She does have very slight rightward curvature of the nasal septum with spurring. Small lucency through the anterior maxilla that is well-corticated and radiologist thought probably was not indicative of a fracture. We will go ahead and refer her to ENTf for definitive management. Return to ED precautions given regarding any further seizure activity. Lab Data Radiology Impressions Face CT 08/28/21 14:17 IMPRESSION: 1. Small avulsion fractures from the anterior nasal spine. 2. No nasal bone fractures. Discharge Plan Discharge Patient Disposition: Home Clinical Impression: Closed fracture nasal bone Qualifiers: Encounter type: initial encounter Qualified Code(s): S02.2XXA - Fracture of nasal bones, initial encounter for closed fracture Condition: Stable Prescriptions: No Action levetiracetam [Keppra] 500 mg Tablet 500 mg PO QAM 0RF Rx Instructions: PT STATES SHE TAKES THIS MEDICATION-LAST PHARMACY [facility] STATES THEY TRANSFERED RX TO [facility] FOR 1000MG BID levetiracetam [Keppra] 750 mg Tablet 750 mg PO BEDTIME 0RF Rx Instructions: PT STATES SHE TAKES THIS MEDICATION-LAST PHARMACY [facility] STATES THEY TRANSFERED RX TO [facility] 1000[facility] [] 28 mg iron- 800 mcg Tablet 1 tab PO DAILY 0RF Advair Diskus 250-50 mcg/dose Blister With Device 1 inh INHALATION BID 0RF alprazolam 0.5 mg tablet See Rx Instructions .ROUTE .COMPLEX 0RF Rx Instructions: 0.5MG PO BID AND 2 TABS AT BEDTIME ziprasidone HCl 40 mg capsule 40 mg PO BID 0RF Rx Instructions: PT STATES SHE HASNT TAKEN THIS MEDICATION FOR 15 OR MORE DAYS Ventolin HFA 90 mcg/actuation Hfa Aerosol Inhaler 2 puff INHALATION Q4H PRN (Reason: Shortness Of Breath) 0RF cranberry 1 - 2 tab PO PRN 0RF Discharge Orders: Discharge ED (Routine); Ordered 08/28/21 Ordered By: Brittney Perkins Patient Instructions: Nasal Fracture (ED) Stand Alone Forms: Work/School Release Coding Level of Care Code ED Principal Secretary for Stefaniag Fwd Exam Comprehensive
--- NOTE | 2021-08-29 06:38 | DCPLANNER ---
Addendum entered by Esperanza Ortiz 09/07/21 08:33: manager winter was notified by the ENT clinic, that clinic has not been able to make contact with patient and not able to leave a voicemail for patient. Clinic sent a letter to patient asking patient to contact office to schedule a follow up appointment. Original Note: manager winter had message to schedule a follow up appointment for patient with ENT. manager winter sent patients information to the front office staff at the ENT clinic for review. Patients information will be printed and reviewed. Clinic will call patient with appointment information.
--- NOTE | 2021-08-29 06:47 | DCPLANNER ---
Addendum entered by Esperanza Ortiz 10/12/21 18:27: Patient had an appointment scheduled for 09.26.21 with neurology - patient did not attend appointment. Addendum entered by Esperanza Ortiz 09/06/21 08:20: Patient has a follow up appointment scheduled for Sunday, September 26, 2021 at 10:[address] [place] at neurology. Clinic will call patient with appointment information. Original Note: manager operations research had message to schedule a follow up appointment for patient with neurology. manager operations research sent patients information to the neurology clinic front staff for review. Patients information will be printed and reviewed. Clinic will call patient with appointment information.
== END 2021-08-28 15:27 | disposition home or self-care (01) ==
PROVIDERS: Emergency Provider Physician Assistant
DX: S02.2XXA Fracture of nasal bones, initial encounter for closed fracture (principal); W19.XXXA Unspecified fall, initial encounter
CPT/HCPCS: 70486; 99282

== ENCOUNTER 2022-09-06 13:51 | Emergency (ER) | payer MEDICAID, SELFPAY ==
[2022-09-06 13:54] VITALS: BP 126/77; PULSE 116; RESP 20; TEMP 36.7; O2SAT 95
[2022-09-06 13:56] VITALS: RESP 20; O2SAT 98
--- NOTE | 2022-09-06 14:22 | CTR_ITS ---
PROCEDURE INFORMATION: Exam: CT Cervical Spine Without Contrast Exam date and time: 09/06/2022 4:01 PM Age: 32 years old Clinical indication: Injury or trauma; Patient HX: Fall from about 8 feet TECHNIQUE: Imaging protocol: Computed tomography of the cervical spine without contrast. REPORTING DATA: Count of CT and Cardiac NM exams in prior 12 months: This patient has received 0 known CTs and 0 known cardiac nuclear medicine studies in the 12 months prior to the current study. COMPARISON: CR XR cervical spine 3V* [id number] 10/11/2018 10:35 PM RADIATION DOSE METRICS: Total DLP (mGy-cm): 242.1 FINDINGS: Bones/joints: No anterior wedging deformity. No acute lucent fracture lines visualized. No destructive osseous lesions are seen. Spondylitic disc bulge causes mild to moderate central stenosis at the C5-C6 level. No severe central canal or neural foraminal stenosis demonstrated by CT. Lungs: Lung apices are normal. Soft tissues: Unremarkable. CT/CT cervical spin wo con* [id number] IMPRESSION: No acute cervical spinal injury demonstrated by CT.
--- NOTE | 2022-09-06 14:22 | CTR_ITS ---
PROCEDURE INFORMATION: Exam: CT Head Without Contrast Exam date and time: 09/06/2022 4:01 PM Age: 32 years old Clinical indication: Injury or trauma; Blunt trauma (contusions or hematomas); Consciousness not specified; Injury details: Fall from 8 feet TECHNIQUE: Imaging protocol: Computed tomography of the head without contrast. Radiation optimization: All CT scans at this facility use at least one of these dose optimization techniques: automated exposure control; mA and/or kV adjustment per patient size (includes targeted exams where dose is matched to clinical indication); or iterative reconstruction. REPORTING DATA: Count of CT and Cardiac NM exams in prior 12 months: This patient has received 0 known CTs and 0 known cardiac nuclear medicine studies in the 12 months prior to the current study. COMPARISON: CT head wo con* [id number] 09/08/2018 10:57 PM RADIATION DOSE METRICS: Total DLP (mGy-cm): 242.1 FINDINGS: Brain: There is no acute intracranial hemorrhage or abnormal extra-axial fluid collection identified. There is no intracranial mass effect or shift of midline structures. The wilkinson-white differentiation is preserved throughout. There is no sulcal effacement. The basilar cisterns are open. Cerebral ventricles: No hydrocephalus or ventricular effacement. Paranasal sinuses: The visualized sinuses are unremarkable. Mastoid air cells: There is no mastoid effusion detected. Bones/joints: No calvarial fracture or destructive osseous lesions are seen. Soft tissues: Unremarkable. CT/CT head wo con* [id number] IMPRESSION: No acute intracranial pathology identified by CT.
--- NOTE | 2022-09-06 14:22 | XRR_ITS ---
PROCEDURE INFORMATION: Exam: XR Right Wrist Exam date and time: 09/06/2022 2:59 PM Age: 32 years old Clinical indication: Pain and injury or trauma; Fall; Blunt trauma (contusions or hematomas); Wrist; Right TECHNIQUE: Imaging protocol: Radiologic exam of the right wrist. Views: 1 or 2 views. COMPARISON: No relevant prior studies available. FINDINGS: Bones/joints: There is an acute comminuted intra-articular fracture of the distal radius, with impaction and prominent dorsal angulation of the articular surface. There is also a suspected displaced fracture of the ulnar styloid process. No carpal fracture is detected. Soft tissues: Periarticular soft tissue swelling. XR/XR wrist RT 2V [id number] IMPRESSION: 1. Acute comminuted intra-articular fracture of the distal radius, with impaction and prominent dorsal angulation of the articular surface. 2. Suspected displaced fracture of the ulnar styloid process.
--- NOTE | 2022-09-06 14:22 | CTR_ITS ---
PROCEDURE INFORMATION: Exam: CT Lumbar Spine Without Contrast Exam date and time: 09/06/2022 4:06 PM Age: 32 years old Clinical indication: Injury or trauma; Blunt trauma (contusions or hematomas) TECHNIQUE: Imaging protocol: Computed tomography of the lumbar spine without contrast. REPORTING DATA: Count of CT and Cardiac NM exams in prior 12 months: This patient has received 0 known CTs and 0 known cardiac nuclear medicine studies in the 12 months prior to the current study. COMPARISON: CR XR lumbar spine 2-3V* [id number] 06/04/2018 10:02 AM RADIATION DOSE METRICS: Total DLP (mGy-cm): 944.41 FINDINGS: Bones/joints: Lumbar vertebra maintain their height and alignment. There is no fracture of the posterior elements. T11-T12: to L1-L2: No disc bulge. No central or foraminal stenosis. L2-L3: Minimal retrolisthesis. No disc bulge. No central or foraminal stenosis. L3-L4: Central disc protrusion which extrudes slightly inferiorly relative to the disc space indenting the thecal sac in the midline. This mildly compresses the thecal sac. No central or foraminal stenosis. L4-L5: Moderate central disc protrusion mildly indenting the thecal sac in the midline. No foraminal stenosis. L5-S1: No disc bulge. No central or foraminal stenosis. Soft tissues: Unremarkable. CT/CT lumbar spine wo con* [id number] IMPRESSION: 1. No fracture of the lumbar spine. 2. Disc protrusions mildly compressing the thecal sac at L3-L4 and L4-L5.
--- NOTE | 2022-09-06 14:33 | W.ED.FALL ---
HPI - Fall General: Chief Complaint: Fall Stated Complaint: fell 8ft Time Seen by Provider: 09/06/22 14:14 Source: patient Mode of arrival: ambulatory History of Present Illness: 32-year-old female was walking on a retaining wall got dizzy lost her balance and fell onto some gravel. She complaining of right wrist and arm pain she is moving her upper arm without difficulty. She is complaining of some back pain. She also complains of striking her head. She has an obvious deformity of the right wrist. No abrasions. She denies other injury. MD complaint: fall Onset (ago): minute(s) Fall from: from height (distance) (4-6ft) Fall witnessed: yes, by bystander Loss of consciousness: None Prolonged down time: no Symptoms prior to fall: lightheadedness Location of injury: head and other Severity: moderate Associated symptoms-after fall: Reports neck pain; Denies abdominal pain, chest pain, confusion, difficulty walking, headache(s), hematuria, lightheadedness, numbness, short of breath, vertigo or weakness Review of Systems Const: Denies: fever(s), chills, body aches, change in appetite, fatigue or malaise ENMT: Denies: throat pain, ear or mastoid pain, nasal discharge or nasal congestion Card: Denies: chest pain or lightheadedness Resp: Denies: dyspnea, productive cough or non-productive cough GI: Denies: abdominal pain, nausea or vomiting : Denies: dysuria, urinary frequency, urinary urgency or hematuria Musc: Reports: neck pain Skin/Breast: Denies: rash or pruritus Neuro: Denies: headache(s), difficulty walking, vertigo or confusion PFSH ED PFSH: Social History Smoking and tobacco status: current every day smoker Physical Exam Const: COMMON NORMALS: no acute distress GENERAL APPEARANCE: cooperative and comfortable ORIENTATION/CONSCIOUSNESS: Yes awake HENMT: COMMON NORMALS: normocephalic, atraumatic and hearing grossly normal bilaterally HEAD & SCALP: normocephalic and atraumatic Resp: COMMON NORMALS: normal respiratory effort, No retractions, No use of accessory muscles and clear to auscultation bilaterally AUSCULTATION: clear to auscultation bilaterally Cardio: COMMON NORMALS: regular rate, regular rhythm and No murmurs present (Cardio) RATE: regular rate RHYTHM: regular rhythm GI: COMMON NORMALS: Soft to palpation and No hepatosplenomegaly present AUSCULTATION: Yes normoactive bowel sounds PALPATION: Yes Soft to palpation, No Tenderness to palpation present (GI), No Guarding due to palpation present (GI) and Yes No hepatosplenomegaly present : COMMON NORMALS: Yes no CVA tenderness BLADDER/KIDNEY EXAM: Yes no CVA tenderness Back/Pelvis: COMMON NORMALS: no CVA tenderness Extremity: OTHER: Obvious deformity of right wrist consistent with fracture Skin: COMMON NORMALS: no rashes or lesions noted GENERAL SKIN EXAM: no rashes or lesions noted Procedures Orthopedic Splinting/Casting Injury #1: Side: right Upper Extremity Injury Location: wrist Upper Extremity Immobilizer: volar splint and Sunday wrap Course Vital Signs: Vital signs: Vital Signs Temperature 98.0 F 09/06/22 13:54 Pulse Rate 101 H 09/06/22 17:40 Respiratory Rate 16 09/06/22 17:40 Blood Pressure 139/93 09/06/22 17:40 Pulse Oximetry 95 09/06/22 17:40 Oxygen Delivery Me thod Room Air 09/06/22 13:54 MDM - Fall Medical Decision Making Labs and imaging reviewed. Patient has right wrist fracture. Splint applied and placed in sling. Will refer to orthopedics. Medical Records I reviewed the patient's medical records. Lab Data I reviewed the patient's lab results. 09/06/22 14:40 09/06/22 14:40 Radiology Impressions Cervical Spine CT 09/06/22 14:22 IMPRESSION: No acute cervical spinal injury demonstrated by CT. Head CT 09/06/22 14:22 IMPRESSION: No acute intracranial pathology identified by CT. Lumbar Spine CT 09/06/22 14:22 IMPRESSION: 1. No fracture of the lumbar spine. 2. Disc protrusions mildly compressing the thecal sac at L3-L4 and L4-L5. Wrist X-Ray 09/06/22 14:22 IMPRESSION: 1. Acute comminuted intra-articular fracture of the distal radius, with impaction and prominent dorsal angulation of the articular surface. 2. Suspected displaced fracture of the ulnar styloid process. Laboratory Results WBC 10.3 10^3/uL (4.0-10.0) H 09/06/22 14:40 RBC 4.71 10^6/uL (4.1-5.3) 09/06/22 14:40 Hgb 13.7 g/dL (11.5-15.3) 09/06/22 14:40 Hct 42.3 % (37.0-47.0) 09/06/22 14:40 MCV 89.8 fl (81-99) 09/06/22 14:40 MCH 29.1 pg (28.0-34.0) 09/06/22 14:40 MCHC 32.4 g/dL (30.0-36.0) 09/06/22 14:40 RDW 13.2 % (12.1-15.1) 09/06/22 14:40 Plt Count 265 10^3/cmm (130-400) 09/06/22 14:40 MPV 10.1 fL (7.4-10.4) 09/06/22 14:40 Neut % (Auto) 67.2 % 09/06/22 14:40 Lymph % (Auto) 23.3 % 09/06/22 14:40 [place] % (Auto) 7.4 % 09/06/22 14:40 Eos % (Auto) 1.5 % 09/06/22 14:40 Baso % (Auto) 0.3 % 09/06/22 14:40 Neut # (Auto) 6.95 10^3/uL (1.8-7.7) 09/06/22 14:40 Lymph # (Auto) 2.4 10^3/uL (0.8-4.8) 09/06/22 14:40 [place] # (Auto) 0.8 10^3/uL (0.2-0.9) 09/06/22 14:40 Eos # (Auto) 0.2 10^3/uL (0.0-0.8) 09/06/22 14:40 Baso # (Auto) 0.0 10^3/uL (0.0-0.1) 09/06/22 14:40 Nucleated RBC % (auto) 0 % 09/06/22 14:40 Nucleated RBCs # 0.0 /100WBC 09/06/22 14:40 Sodium 139 mmol/L (136-145) 09/06/22 14:40 Potassium 3.7 mmol/L (3.5-5.1) 09/06/22 14:40 Chloride 102 mmol/L (98-107) 09/06/22 14:40 Carbon Dioxide 22 mmol/L (22-29) 09/06/22 14:40 Anion Gap 18.7 (5-19) 09/06/22 14:40 BUN 18 mg/dL (6-20) 09/06/22 14:40 Creatinine 0.8 mg/dL (0.5-0.9) 09/06/22 14:40 GFR Calculation 84.2 mL/min (90-130) L 09/06/22 14:40 Glucose 85 mg/dL (65-115) 09/06/22 14:40 Calculated Osmolality 289 mOsm/kg (285-295) 09/06/22 14:40 Calcium 9.1 mg/dL (8.5-10.5) 09/06/22 14:40 Total Bilirubin 1.5 mg/dL (0.15-1.2) H 09/06/22 14:40 AST 20 U/L (0-32) 09/06/22 14:40 ALT 29 U/L (0-33) 09/06/22 14:40 Alkaline Phosphatase 73 U/L (35-105) 09/06/22 14:40 Total Protein 7.5 g/dL (6.6-8.7) 09/06/22 14:40 Albumin 4.5 g/dL (3.5-5.2) 09/06/22 14:40 Globulin 3.0 g/dL (1.3-4.6) 09/06/22 14:40 Ser , Semi-Qnt 1.00 mIU/mL 09/06/22 14:40 Discharge Plan Discharge Patient Disposition: Home Clinical Impression: Fracture of right wrist Condition: Stable Prescriptions: New hydrocodone-acetaminophen 5-325 mg tablet 1 tab PO Q6H PRN (Reason: pain) Qty: 15 0RF No Action levetiracetam [Keppra] 500 mg Tablet 500 mg PO QAM PNV cmb#95-ferrous fumarate-FA [] 28 mg iron- 800 mcg Tablet 1 tab PO DAILY lisinopril 20 mg Tablet 20 mg PO DAILY quetiapine 100 mg tablet 100 mg PO BID levetiracetam 1,000 mg tablet 1,000 mg PO DAILY Discharge Orders: Discharge ED (Routine); Ordered 09/06/22 Ordered By: Eddie Vieyra Discharge Diet: Usual diet Discharge Activity: Limit activity as instructed Patient Instructions: Opioid Safety, Pain Management Activity Restrictions/Additional Instructions: You were seen today for a right wrist fracture after a fall. The remainder of your labs and imaging were normal. Use the splint and sling until you are seen by orthopedics you can use pain medication prescribed as needed. Case management make arrangements for follow-up with orthopedics. Coding Level of Care Code ED Motorcycle Delivery Driver for Alessandro Treviño
[2022-09-06 14:42] VITALS: RESP 20
[2022-09-06] MEDS: ondansetron 2 mg/ML SDV 2 mL 4 MG IVP (14:42)
[2022-09-06] MEDS: morphine 4 mg/mL SDV 1 mL IVP (14:42)
[2022-09-06 15:25] LABS: Basophils % 0.3 %; Eosinophils # 0.2 10^3/uL (0.0-0.8); Eosinophils % 1.5 %; Hematocrit 42.3 % (37.0-47.0); Hemoglobin 13.7 g/dL (11.5-15.3); Lymphocytes # 2.4 10^3/uL (0.8-4.8); Lymphocytes % 23.3 %; Mean Corpuscular HGB Conc 32.4 g/dL (30.0-36.0); Mean Corpuscular Hemoglobin 29.1 pg (28.0-34.0); Mean Corpuscular Volume 89.8 fl (81-99); Mean Platelet Volume 10.1 fL (7.4-10.4); Monocytes # 0.8 10^3/uL (0.2-0.9); Monocytes % 7.4 %; Neutrophils # 6.95 10^3/uL (1.8-7.7); Neutrophils % 67.2 %; Nucleated Red Blood Cells % 0 %; Platelet Count 265 10^3/cmm (130-400); Red Blood Count 4.71 10^6/uL (4.1-5.3); Red Cell Distribution Width 13.2 % (12.1-15.1); White Blood Count 10.3 10^3/uL (4.0-10.0)
[2022-09-06 15:40] LABS: Alanine Aminotransferase 29 U/L (0-33); Albumin Level 4.5 g/dL (3.5-5.2); Alkaline Phosphatase 73 U/L (35-105); Anion Gap 18.7 (5-19); Aspartate Amino Transferase 20 U/L (0-32); Blood Urea Nitrogen 18 mg/dL (6-20); Calcium 9.1 mg/dL (8.5-10.5); Carbon Dioxide 22 mmol/L (22-29); Chloride 102 mmol/L (98-107); Glomerular Filtration Rate 84.2 mL/min (90-130); Glucose 85 mg/dL (65-115); Osmolality Calculated 289 mOsm/kg (285-295); Potassium 3.7 mmol/L (3.5-5.1); Sodium 139 mmol/L (136-145); Total Bilirubin 1.5 mg/dL (0.15-1.2); Total Protein 7.5 g/dL (6.6-8.7)
[2022-09-06] MEDS: HYDROcodone-acetaminophen 5-325 mg Tablet 2 TAB PO (16:39)
[2022-09-06 17:26] VITALS: BP 139/93; PULSE 101; RESP 16; O2SAT 95
[2022-09-06 17:40] VITALS: BP 139/93; PULSE 101; RESP 16; O2SAT 95
--- NOTE | 2022-09-11 09:49 | DCPLANNER ---
Addendum entered by Esperanza Ortiz 09/11/22 13:06: sales and production manager received the following message from the ortho clinic regarding follow up appointment: Dr. Dietrich has spoke to the NPU regarding patient Patient came back to the ER and was admitted to the neuro psych unit, director case management informed the ortho clinic of this when referral was made to the clinic. Original Note: sales and production manager had message to schedule a follow up appointment for patient with ortho. sales and production manager sent patients information to the front office staff at ortho. Patients information will be printed and reviewed. Clinic will call patient with appointment information.
--- NOTE | 2022-09-11 15:07 | DCPLANNER ---
assistant service manager unable to speak with patient at this time about getting established with a primary care physician.
== END 2022-09-06 17:44 | disposition home or self-care (01) ==
PROVIDERS: Emergency Provider Family Medicine
DX: S52.571A Other intraarticular fracture of lower end of right radius, initial encounter for closed fracture (principal); F17.210 Nicotine dependence, cigarettes, uncomplicated; W17.89XA Other fall from one level to another, initial encounter
CPT/HCPCS: 70450; 72125; 72131; 73100; 80053; 84702; 85025; 96374; 96375; 99285; J2270; J2405

== ENCOUNTER 2022-09-07 16:10 | Inpatient (IN) | payer MEDICAID, SELFPAY ==
[2022-09-07] VITALS (8 sets, daily range): BP systolic 116–149; BP diastolic 63–84; PULSE 60–87; RESP 14–20; TEMP 36.7–36.8; O2SAT 98–99
--- NOTE | 2022-09-07 16:22 | ED.C_ITS ---
HPI - Psych General: Chief Complaint: Extremity Injury, Upper Stated Complaint: mhe Time Seen by Provider: 09/07/22 16:22 History of Present Illness: 32-year-old lady with psychiatric history presenting to the emergency department for 2 separate concerns. Apparently she fell yesterday and was seen and evaluated diagnosed with distal intra-articular radius and ulnar styloid fractur e. She was splinted and reports taking her medications however has had significant pain. She endorses some tingling in her hands though more like shooting pain as opposed paresthesias. She endorses a grinding sensation. Intensity of pain is severe. Course has persisted. Additionally she presents for psychiatric evaluation. She reports history of various diagnoses including possible bipolar though subsequently told that she may have borderline personality disorder. She is currently on psychiatric medications and reports compliance, she had suicidal thoughts yesterday. She endorses increased aggressiveness and anger. No other specific changes in health, exacerbating, or alleviating factors identified. Onset (ago): day(s) History of same: Yes Associated psychiatric symptoms: depression, suicidal ideation and racing thoughts Review of Systems General: Reports: 10 or more systems reviewed and unremarkable except in HPI and below PFSH ED PFSH: Medical History Post-traumatic stress disorder, chronic Substance abuse Family History Other Family history of premature coronary artery disease Social History Smoking and tobacco status: current every day smoker Physical Exam Const: COMMON NORMALS: alert GENERAL APPEARANCE: cooperative and well developed HENMT: COMMON NORMALS: normocephalic and atraumatic HEAD & SCALP: normocephalic and atraumatic Eye: COMMON NORMALS: conjunctivae normal CONJUNCTIVA: Yes conjunctivae normal SCLERA: sclerae normal Neck/C-Spine: COMMON NORMALS: supple GENERAL: Yes trachea midline Resp: COMMON NORMALS: clear to auscultation bilaterally EFFORT & INSPECTION: Yes able to speak in complete sentences AUSCULTATION: clear to auscultation bilaterally Cardio: COMMON NORMALS: regular rate and regular rhythm RATE: regular rate RHYTHM: regular rhythm GI: COMMON NORMALS: Soft to palpation PALPATION: Yes Soft to palpation and No Tenderness to palpation present (GI) PERCUSSION: normal to percussion Extremity: NARRATIVE EXTREMITY EXAM: Splinted extremity is examined. No evidence of compartment syndrome or other complication. CMS intact. Warm well perfused. Given pain mild loosening of wraps without apparent loss of reduction. GENERAL: Yes normal exam except as noted and No edema Neuro: COMMON NORMALS: moves all extremities SENSORIUM/ORIENTATION: Yes alert and No Orientation impaired Psych: COMMON NORMALS: mental status grossly normal and Normal thought process present THOUGHT PROCESS: Normal thought process present Course Vital Signs: Vital signs: Vital Signs Temperature 98.6 F 09/16/22 12:42 Pulse Rate 103 H 09/16/22 12:42 Respiratory Rate 17 09/16/22 12:45 Blood Pressure 115/79 09/16/22 12:42 Pulse Oximetry 97 09/16/22 12:42 Oxygen Delivery Me thod Room Air 09/16/22 06:00 MDM - Psych Medical Decision Making 32-year-old lady presenting due to increased upper arm pain post known fracture and psychiatric concerns. Exam as above. Patient is anxious however calm and cooperative. No evidence of complication from fracture on exam as noted. Labs notable for no significant hematologic or metabolic abnormality. Toxic ingestions are negative. UDS positive for opiates, amphetamines, THC. X-ray demonstrates closed reduction with mildly improved alignment. Treated with analgesia with improvement in symptoms. Most likely etiology of patient's symptoms is psychiatric in nature with secondary post fracture pain. Given SI and in discussion with the patient she requires inpatient management with psychiatry service. The results of ED evaluation were discussed with the patient including plan for admission due to requirement for level of care not available if discharged to prevent significant worsening/deterioration. Patient agreeable with plan. Discussed with psychiatry service who was agreeable to admit patient. Medical Records I reviewed the patient's medical records. Lab Data I reviewed the patient's lab results. 09/13/22 05:31 09/13/22 05:31 Laboratory Results WBC 9.9 10^3/uL (4.0-10.0) 09/07/22 16:52 RBC 4.38 10^6/uL (4.1-5.3) 09/07/22 16:52 Hgb 12.7 g/dL (11.5-15.3) 09/07/22 16:52 Hct 39.7 % (37.0-47.0) 09/07/22 16:52 MCV 90.6 fl (81-99) 09/07/22 16:52 MCH 29.0 pg (28.0-34.0) 09/07/22 16:52 MCHC 32.0 g/dL (30.0-36.0) 09/07/22 16:52 RDW 13.2 % (12.1-15.1) 09/07/22 16:52 Plt Count 275 10^3/cmm (130-400) 09/07/22 16:52 MPV 10.1 fL (7.4-10.4) 09/07/22 16:52 Neut % (Auto) 59.0 % 09/07/22 16:52 Lymph % (Auto) 28.9 % 09/07/22 16:52 [place] % (Auto) 9.1 % 09/07/22 16:52 Eos % (Auto) 2.5 % 09/07/22 16:52 Baso % (Auto) 0.3 % 09/07/22 16:52 Neut # (Auto) 5.82 10^3/uL (1.8-7.7) 09/07/22 16:52 Lymph # (Auto) 2.9 10^3/uL (0.8-4.8) 09/07/22 16:52 [place] # (Auto) 0.9 10^3/uL (0.2-0.9) 09/07/22 16:52 Eos # (Auto) 0.3 10^3/uL (0.0-0.8) 09/07/22 16:52 Baso # (Auto) 0.0 10^3/uL (0.0-0.1) 09/07/22 16:52 Nucleated RBC % (auto) 0 % 09/07/22 16:52 Nucleated RBCs # 0.0 /100WBC 09/07/22 16:52 Sodium 138 mmol/L (136-145) 09/07/22 16:52 Potassium 4.0 mmol/L (3.5-5.1) 09/07/22 16:52 Chloride 103 mmol/L (98-107) 09/07/22 16:52 Carbon Dioxide 24 mmol/L (22-29) 09/07/22 16:52 Anion Gap 15.0 (5-19) 09/07/22 16:52 BUN 23 mg/dL (6-20) H 09/07/22 16:52 Creatinine 0.5 mg/dL (0.5-0.9) 09/07/22 16:52 GFR Calculation 144.9 mL/min (90-130) H 09/07/22 16:52 Glucose 99 mg/dL (65-115) 09/07/22 16:52 Calculated Osmolality 290 mOsm/kg (285-295) 09/07/22 16:52 Calcium 8.6 mg/dL (8.5-10.5) 09/07/22 16:52 Total Bilirubin 0.7 mg/dL (0.15-1.2) 09/07/22 16:52 AST 15 U/L (0-32) 09/07/22 16:52 ALT 22 U/L (0-33) 09/07/22 16:52 Alkaline Phosphatase 73 U/L (35-105) 09/07/22 16:52 Total Protein 6.6 g/dL (6.6-8.7) 09/07/22 16:52 Albumin 3.9 g/dL (3.5-5.2) 09/07/22 16:52 Globulin 2.7 g/dL (1.3-4.6) 09/07/22 16:52 TSH 1.08 uIU/mL (0.27-4.20) 09/07/22 16:52 HCG, Qual Negative (Negative) 09/07/22 16:52 Salicylates < 0.3 mg/dL (3-10) L 09/07/22 16:52 Urine Opiates Screen Positive ng/mL (Negative) H 09/07/22 20:10 Acetaminophen < 5.0 ug/mL (10-30) L 09/07/22 16:52 Ur Barbiturates Screen Negative ng/mL (Negative) 09/07/22 20:10 Ur Phencyclidine Scrn Negative ng/mL (Negative) 09/07/22 20:10 Ur Amphetamines Screen Positive ng/mL (Negative) H 09/07/22 20:10 U Benzodiazepines Scrn Negative ng/mL (Negative) 09/07/22 20:10 Urine Cocaine Screen Negative ng/mL (Negative) 09/07/22 20:10 U Marijuana (THC) Screen Positive ng/mL (Negative) H 09/07/22 20:10 Ethyl Alcohol < 10 mg/dL (0-10) 09/07/22 16:52 Discharge Plan Discharge Patient Disposition: Admitted As Inpatient Admit Provider: Kennedy Damon Clinical Impression: Depression, Suicidal ideation, Pain due to fracture Condition: Stable Discharge Diet: Advance as tolerated Discharge Activity: Limit activity as instructed Coding Level of Care Code ED Brewery Technician for Alessandro Treviño
--- NOTE | 2022-09-07 16:38 | XRR_ITS ---
PROCEDURE INFORMATION: Exam: XR Right Wrist Exam date and time: 09/07/2022 4:42 PM Age: 32 years old Clinical indication: Injury or trauma; Fall; Blunt trauma (contusions or hematomas); Wrist; Right; Additional info: Increase pain post fracture TECHNIQUE: Imaging protocol: Radiologic exam of the right wrist. Views: 1 or 2 views. COMPARISON: CR XR wrist RT 2V [id number] 09/06/2022 2:59 PM FINDINGS: Bones/joints: Interval placement of overlying cast material that can obscure fine bony detail. There has been interval closed reduction of the comminuted intra-articular fracture of the distal right radius. Mildly improved alignment with residual dorsal displacement of 5 mm, mild dorsal angulation, and impaction of the distal fracture fragment. Nondisplaced fracture of the right ulnar styloid. No dislocation. Normal bone mineralization. No joint effusion. Joint spaces are maintained. Soft tissues: Moderate soft tissue swelling at the distal right forearm. No radiopaque foreign body. XR/XR wrist RT 2V [id number] IMPRESSION: 1. There has been interval closed reduction of the comminuted intra-articular fracture of the distal right radius. Mildly improved alignment with residual dorsal displacement of 5 mm, mild dorsal angulation, and impaction of the distal fracture fragment. 2. Nondisplaced fracture of the right ulnar styloid. 3. Moderate soft tissue swelling at the distal right forearm.
[2022-09-07 16:58] LABS: Basophils % 0.3 %; Eosinophils # 0.3 10^3/uL (0.0-0.8); Eosinophils % 2.5 %; Hematocrit 39.7 % (37.0-47.0); Hemoglobin 12.7 g/dL (11.5-15.3); Lymphocytes # 2.9 10^3/uL (0.8-4.8); Lymphocytes % 28.9 %; Mean Corpuscular Volume 90.6 fl (81-99); Mean Platelet Volume 10.1 fL (7.4-10.4); Monocytes # 0.9 10^3/uL (0.2-0.9); Monocytes % 9.1 %; Neutrophils # 5.82 10^3/uL (1.8-7.7); Nucleated Red Blood Cells % 0 %; Platelet Count 275 10^3/cmm (130-400); Red Blood Count 4.38 10^6/uL (4.1-5.3); Red Cell Distribution Width 13.2 % (12.1-15.1); White Blood Count 9.9 10^3/uL (4.0-10.0)
[2022-09-07] MEDS: ketorolac 30 mg/mL INJ 15 MG IVP (16:58)
[2022-09-07] MEDS: fentaNYL 50 mcg/mL INJ 2mL IVP ×2 (16:59→21:33)
[2022-09-07 17:09] LABS: HCG, Serum Qual Negative (Negative)
[2022-09-07 17:27] LABS: Alanine Aminotransferase 22 U/L (0-33); Albumin Level 3.9 g/dL (3.5-5.2); Alkaline Phosphatase 73 U/L (35-105); Aspartate Amino Transferase 15 U/L (0-32); Blood Urea Nitrogen 23 mg/dL (6-20); Calcium 8.6 mg/dL (8.5-10.5); Carbon Dioxide 24 mmol/L (22-29); Chloride 103 mmol/L (98-107); Globulin 2.7 g/dL (1.3-4.6); Glomerular Filtration Rate 144.9 mL/min (90-130); Glucose 99 mg/dL (65-115); Osmolality Calculated 290 mOsm/kg (285-295); Sodium 138 mmol/L (136-145); Thyroid Stimulating Hormone 1.08 uIU/mL (0.27-4.20); Total Bilirubin 0.7 mg/dL (0.15-1.2); Total Protein 6.6 g/dL (6.6-8.7)
[2022-09-07 17:32] LABS: Acetaminophen < 5.0 ug/mL (10-30); Alcohol Level < 10 mg/dL (0-10); Salicylate < 0.3 mg/dL (3-10)
[2022-09-07] MEDS: acetaminophen 500 mg Tablet 1000 MG PO (17:50)
[2022-09-07] MEDS: oxyCODONE 5 mg IR Tab/Cap PO (17:51)
[2022-09-07] MEDS: HYDROmorphone 1 mg/mL INJ 1 mL 0.5 MG IVP (19:13)
[2022-09-07 20:39] LABS: Amphetamines Screen Urine Positive (Negative); Barbiturates Screen Urine Negative (Negative); Benzodiazepines Screen Urine Negative (Negative); Cocaine Screen Urine Negative (Negative); Opiate Screen Urine Positive (Negative); PCP Screen Urine Negative (Negative); THC Screen Urine Positive (Negative)
[2022-09-08] MEDS: ibuprofen 800 mg tablet PO ×2 (00:14→15:30)
[2022-09-08] MEDS: trazodone 50 mg Tablet PO (00:14)
[2022-09-08] MEDS: OLANZapine 5 mg ODT PO (00:15)
[2022-09-08] MEDS: nicotine 2 mg Gum BUCCAL (01:11)
[2022-09-08 06:00] VITALS: RESP 16
[2022-09-08 07:26] VITALS: RESP 17
[2022-09-08] MEDS: pantoprazole DR 40 mg Tablet PO (07:26)
[2022-09-08] MEDS: oxyCODONE 5 mg IR Tab/Cap PO ×3 (07:26→20:19)
[2022-09-08] MEDS: levETIRAcetam 500 mg Tablet PO (08:26)
[2022-09-08] MEDS: quetiapine 100 mg Tablet PO ×2 (08:26→20:19)
[2022-09-08] MEDS: lisinopril 20 mg Tablet PO (08:26)
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
[2022-09-08 14:00] VITALS: BP 119/76; PULSE 95; RESP 18; TEMP 36.8; O2SAT 97
[2022-09-08 14:07] VITALS: RESP 17
[2022-09-08] MEDS: hyDROXYzine 25 mg Capsule 50 MG PO ×2 (15:30→20:24)
--- NOTE | 2022-09-08 15:30 | PC.NURSE ---
PRN VISTARIL 50 MG GIVEN PO PER PT C/O STATED ANXIETY
[2022-09-08] MEDS: nicotine 4 mg lozenge MUCOUS MEM (18:04)
[2022-09-08] MEDS: levETIRAcetam 500 mg Tablet 1000 MG PO (20:18)
[2022-09-08 20:19] VITALS: RESP 20
[2022-09-08 21:01] VITALS: BP 105/71; PULSE 78; RESP 18; TEMP 36.9; O2SAT 97
[2022-09-09] VITALS (7 sets, daily range): BP systolic 104–113; BP diastolic 63–70; PULSE 67–87; RESP 16–20; TEMP 36.5–36.7; O2SAT 96–97
[2022-09-09] MEDS: hyDROXYzine 25 mg Capsule 50 MG PO ×3 (03:54→18:22)
[2022-09-09] MEDS: oxyCODONE 5 mg IR Tab/Cap PO ×4 (03:54→18:22)
[2022-09-09] MEDS: nicotine 4 mg lozenge MUCOUS MEM ×5 (08:40→18:22)
[2022-09-09] MEDS: pantoprazole DR 40 mg Tablet PO (08:40)
[2022-09-09] MEDS: lisinopril 20 mg Tablet PO (08:40)
[2022-09-09] MEDS: quetiapine 100 mg Tablet PO ×2 (08:40→20:59)
[2022-09-09] MEDS: levETIRAcetam 500 mg Tablet PO (08:40)
[2022-09-09] MEDS: ibuprofen 800 mg tablet PO (11:11)
[2022-09-09] MEDS: OLANZapine 5 mg ODT PO ×2 (13:03→20:59)
--- NOTE | 2022-09-09 13:11 | PC.NURSE ---
Administered Wendell and Zyprexa to patient. Pain rated 10/10 in wrist and back. Patient also requesting medication for anxiety. Patient acting agitated and jittery. Patient stated that the Visteral given earlier did not help alleviate her anxiety.
--- NOTE | 2022-09-09 14:13 | W.PM.NPUPNS ---
Subjective NPU Subjective: Patient presented today reporting that she was not sure that the Seroquel really helping for her mood stabilization. She also reported need for something for anxiety as well as reports of a need for something for her history of ADHD. In the long conversation about her addiction and the impact that methamphetamine could have on all areas of functioning. She continued to seem to downplay or at least not see the primacy of her addiction in her situation. We discussed the risks, benefits and alternatives of a trial of Invega and BuSpar and she understood and agreed to proceed as is documented in this note. We also discussed her Strattera and had a long conversation about her thoughts about controlled substances as answers to her anxiety and reports of ADHD. Mental Status Exam MSE Comments: This is an overweight versus obese white female in hospital scrubs with limited grooming and eye contact. Bandages noteworthy around her right hand/forearm. No abnormal movements except for improving psychomotor retardation. Somewhat more cooperative with exam in mild distress. Speech was decreased rate and volume with less dozing off. Mood described as anxious, affect subdued but less somnolent. Thought process linear. Thought content: Patient denied current suicidal or homicidal thoughts, there were no delusions reported but there may have been some paranoia and guardedness. She did not report any auditory or visual hallucinations. Attention and concentration were improving and memory was unreliable but none were formally tested. She is alert and oriented times person and place. Insight, judgment and impulse control are impaired. Vitals/I&O/Wt Last Vital Signs Temp 97.8 F 09/09/22 14:00 Pulse 87 09/09/22 14:00 Resp 16 09/09/22 14:00 BP 104/63 09/09/22 14:00 Pulse Ox 97 09/09/22 14:00 O2 Del Method Room Air 09/09/22 14:00 Weight last 48 hrs Weight 99.79 kg Data NPU 09/07/22 16:52 09/07/22 16:52 A&P Assessment and plan (1) Fracture of right wrist: (2) Depression: (3) Suicidal ideation: (4) Methamphetamine use disorder, severe: (5) Cannabis use disorder: Plan This is a 32-year-old white female with a long history of mental health and addiction issues who presented to the hospital with a broken right hand reporting suicidal and homicidal thoughts, medications were not working well. 1. Continue current medication. Start BuSpar 10 mg p.o. twice daily and Invega 6 mg p.o. every morning and consider the injectable if appropriate. 2. Continue one-to-one given the bandage until Ortho can consider alternatives. 3. Encourage individual, group and milieu therapies. 4. Encourage sober living treatment after discharge at the hospital care to which she is willing to commit. Involuntary Hold Information 96 Hour Hold: 96 Hour Involuntary Admission: No Attestations NPU Medical Necessity Statement*: Inpatient hospitalization is medically necessary and the clinically appropriate intervention at this time. We will monitor/initiate medications and make changes as indicated. Likely length of stay 3-5 days. Coding Level of Care Code Acute Code for [facility] Fwd Diagnoses Fracture of right wrist S62.101A Depression F32.A Suicidal ideation R45.851 Methamphetamine use disorder, severe F15.20 Cannabis use disorder F12.90
[2022-09-09] MEDS: levETIRAcetam 500 mg Tablet 1000 MG PO (20:59)
[2022-09-09] MEDS: trazodone 50 mg Tablet PO (21:11)
[2022-09-10 06:00] VITALS: BP 108/73; PULSE 63; RESP 18; TEMP 36.9; O2SAT 97
[2022-09-10] MEDS: levETIRAcetam 500 mg Tablet PO (08:27)
[2022-09-10] MEDS: lisinopril 20 mg Tablet PO (08:27)
[2022-09-10] MEDS: pantoprazole DR 40 mg Tablet PO (08:27)
[2022-09-10] MEDS: nicotine 4 mg lozenge MUCOUS MEM ×4 (08:27→18:08)
[2022-09-10] MEDS: quetiapine 100 mg Tablet PO ×2 (08:27→20:21)
[2022-09-10] MEDS: paliperidone ER 6 mg Tablet PO (08:27)
[2022-09-10] MEDS: BuSPIRONE 10 mg Tablet PO ×2 (08:27→18:08)
[2022-09-10 08:28] VITALS: RESP 18
[2022-09-10] MEDS: oxyCODONE 5 mg IR Tab/Cap PO ×3 (08:28→18:08)
[2022-09-10 13:10] VITALS: RESP 18
[2022-09-10] MEDS: hyDROXYzine 25 mg Capsule 50 MG PO ×2 (13:10→20:21)
[2022-09-10] MEDS: ibuprofen 800 mg tablet PO (13:11)
[2022-09-10 14:00] VITALS: BP 116/72; PULSE 96; RESP 16; TEMP 36.7; O2SAT 97
[2022-09-10] MEDS: acetaminophen 325 mg Tablet 650 MG PO (15:45)
--- NOTE | 2022-09-10 17:43 | P.NPUPN_ITS ---
Subjective NPU Subjective: Patient presented today very thankful about the fact that she was accepted by [facility]. It appears to have a bed date on September 16, 2022. We agreed we would continue our medication adjustments and decide whether the most appropriate plan was to keep her until next Friday or if there were any community options that provided a chance for sobriety and her having no additional slip-ups prior to Friday. She endorsed that she tolerated the initiation of Invega as well as the BuSpar. Mental Status Exam MSE Comments: This is an overweight versus obese white female in hospital scrubs with limited grooming and eye contact. Bandages noteworthy around her right hand/forearm. No abnormal movements except for improving psychomotor retardation. More cooperative with exam in mild distress. Speech was decreased rate and volume with no dozing off. Mood described as getting better and thankful for [facility], affect less subdued. Thought process linear. Thought content: Patient denied current suicidal or homicidal thoughts, there were no delusions reported and less paranoia and guardedness. She did not report any auditory or visual hallucinations. Attention and concentration were improving and memory was more reliable but none were formally tested. She is alert and oriented times 3. Insight and judgment are improving and impulse control is improving but limited. Vitals/I&O/Wt Last Vital Signs Temp 97.9 F 09/10/22 19:55 Pulse 100 09/10/22 19:55 Resp 20 H 09/11/22 00:02 BP 100/62 09/10/22 19:55 Pulse Ox 97 09/10/22 19:55 O2 Del Method Room Air 09/10/22 19:55 Data NPU 09/07/22 16:52 09/07/22 16:52 A&P Assessment and plan (1) Fracture of right wrist: (2) Depression: (3) Suicidal ideation: (4) Methamphetamine use disorder, severe: (5) Cannabis use disorder: Plan This is a 32-year-old white female with a long history of mental health and addiction issues who presented to the hospital with a broken right hand reporting suicidal and homicidal thoughts, medications were not working well. 1. Continue current medication. Started BuSpar 10 mg p.o. twice daily and Invega 6 mg p.o. every morning and consider the injectable if appropriate. 2. Continue one-to-one given the bandage until Ortho can consider alternatives. 3. Encourage individual, group and milieu therapies. 4. Encourage sober living treatment after discharge at the hospital care to which she is willing to commit. Involuntary Hold Information 96 Hour Hold: 96 Hour Involuntary Admission: No Attestations NPU Medical Necessity Statement*: Inpatient hospitalization is medically necessary and the clinically appropriate intervention at this time. We will monitor/initiate medications and make changes as indicated. Likely length of stay 3-5 days. Coding Level of Care Code Acute Code for [facility] Fwd Diagnoses Fracture of right wrist S62.101A Depression F32.A Suicidal ideation R45.851 Methamphetamine use disorder, severe F15.20 Cannabis use disorder F12.90
[2022-09-10 18:08] VITALS: RESP 18
[2022-09-10 19:55] VITALS: BP 100/62; PULSE 100; RESP 173; TEMP 36.6; O2SAT 97
[2022-09-10] MEDS: levETIRAcetam 500 mg Tablet 1000 MG PO (20:20)
[2022-09-10] MEDS: trazodone 50 mg Tablet PO (20:20)
[2022-09-11] VITALS (10 sets, daily range): BP systolic 84–111; BP diastolic 48–63; PULSE 91–106; RESP 16–21; TEMP 36.6–36.9; O2SAT 98–99
[2022-09-11] MEDS: hyDROXYzine 25 mg Capsule 50 MG PO (00:02)
[2022-09-11] MEDS: oxyCODONE 5 mg IR Tab/Cap PO ×5 (00:02→23:16)
[2022-09-11] MEDS: levETIRAcetam 500 mg Tablet PO (09:11)
[2022-09-11] MEDS: benztropine 1 mg Tablet PO (09:11)
[2022-09-11] MEDS: pantoprazole DR 40 mg Tablet PO (09:11)
[2022-09-11] MEDS: nicotine 4 mg lozenge MUCOUS MEM ×6 (09:11→23:17)
[2022-09-11] MEDS: BuSPIRONE 10 mg Tablet PO ×2 (09:11→17:41)
[2022-09-11] MEDS: lisinopril 20 mg Tablet PO (09:12)
[2022-09-11] MEDS: paliperidone ER 6 mg Tablet PO (09:12)
[2022-09-11] MEDS: quetiapine 100 mg Tablet PO ×2 (09:27→19:59)
--- NOTE | 2022-09-11 12:50 | W.PM.NPUPNS ---
Subjective NPU Subjective: Patient presented today reporting that she is feeling better from a standpoint of her mood but feeling under the weather/shaky otherwise. Vital signs unstable from the standpoint of her blood pressure. The hospitalist suggested her going to [facility] to get some fluids. She was agreeable to that plan. Additionally there is a plan for her to have her outpatient orthopedic procedure tomorrow if all is deemed stable enough. We continue to await her likely bed date at [facility] on 09/16/2022. Mental Status Exam MSE Comments: This is an overweight versus obese white female in hospital scrubs with limited grooming and eye contact. Bandages noteworthy around her right hand/forearm. No abnormal movements except for improving psychomotor retardation. More cooperative with exam in mild distress. Speech was decreased rate and volume. Mood described as getting better but feeling shaky, affect less subdued. Thought process linear. Thought content: Patient denied current suicidal or homicidal thoughts, there were no delusions reported and less paranoia and guardedness. She did not report any auditory or visual hallucinations. Attention and concentration were improving and memory was more reliable but none were formally tested. She is alert and oriented times 3. Insight and judgment are improving and impulse control is improving but limited. Vitals/I&O/Wt Last Vital Signs Temp 98 F 09/11/22 13:28 Pulse 106 H 09/11/22 13:28 Resp 17 09/11/22 13:28 BP 84/50 09/11/22 13:28 Pulse Ox 98 09/11/22 13:28 O2 Del Method Room Air 09/11/22 13:28 09/11/22 09/11/22 14:59 22:59 Intake Total Balance Data NPU 09/11/22 14:15 09/11/22 14:15 A&P Assessment and plan (1) Fracture of right wrist: (2) Depression: (3) Suicidal ideation: (4) Methamphetamine use disorder, severe: (5) Cannabis use disorder: Plan This is a 32-year-old white female with a long history of mental health and addiction issues who presented to the hospital with a broken right hand reporting suicidal and homicidal thoughts, medications were not working well. 1. Continue current medication. Started BuSpar 10 mg p.o. twice daily and Invega 6 mg p.o. every morning and consider the injectable if appropriate. 2. Continue one-to-one given the bandage until Ortho can consider alternatives. Appreciate ortho consult and will plan for procedure on . 3. Encourage individual, group and milieu therapies. 4. Encourage sober living treatment after discharge at the hospital care to which she is willing to commit. 5. Appreciate hospitalist interventions and agree with patient going to [facility] likely just for tomorrow with IV fluids and evaluation as well as ortho procedure. Involuntary Hold Information 96 Hour Hold: 96 Hour Involuntary Admission: No Attestations NPU Medical Necessity Statement*: Inpatient hospitalization is medically necessary and the clinically appropriate intervention at this time. We will monitor/initiate medications and make changes as indicated. Likely length of stay 3-5 days. Coding Level of Care Code Acute Code for [facility] Fwd Diagnoses Fracture of right wrist S62.101A Depression F32.A Suicidal ideation R45.851 Methamphetamine use disorder, severe F15.20 Cannabis use disorder F12.90
--- NOTE | 2022-09-11 13:20 | PM.CONSULT ---
Providers/Reason For Consult Consulting Physician/Specialty*: Manolo Dietrich MD; orthopedic surgery Reason for Consult*: Right distal radius fracture Attending Physician: Kennedy Damon MD History of Present Illness History of Present Illness Trinity Chao is a 32 year old female who fell on 09/06/2022 with immediate pain and deformity to her forearm. She describes a falling approximately 8 feet from a wall landing on her right arm.She was seen in our emergency room radiographs revealed a displaced intra-articular fracture of the right distal radius. She was found to have suicidal ideation and methamphetamine use and was admitted to the psychiatric unit. Consultation came to my desk today I am asked to see her for her distal radius. Medications/Allergies Home Medications Medication Instructions Recorded Confirmed Last Taken Type levetiracetam 500 mg tablet 500 mg PO QAM seizure 08/30/19 09/07/22 09/10/19 History (Kera) vit no.95-ferrous 1 tab PO DAILY 08/30/19 09/07/22 09/10/19 History fumarate 28 mg-folic acid 800 mcg tablet () hydrocodone 5 mg-acetaminophen 325 1 tab PO Q6H PRN pain #15 tabs 09/06/22 09/07/22 Unknown Rx mg tablet levetiracetam 1,000 mg tablet 1,000 mg PO DAILY 09/07/22 09/07/22 Unknown History lisinopril 20 mg tablet 20 mg PO DAILY 09/07/22 09/07/22 Unknown History quetiapine 100 mg tablet 100 mg PO BID 09/07/22 09/07/22 Unknown History Allergies Allergy/AdvReac Type Severity Reaction Status Date / Time No Known Allergies Allergy Verified 09/06/22 13:56 Current Medications Generic Name Dose Route Start Last Admin Trade Name Freq PRN Reason Stop Dose Admin Acetaminophen 650 mg 09/07/22 23:39 09/10/22 15:45 Acetaminophen 325 Mg Tablet PO 650 mg Q4H PRN Administration MILD PAIN Benztropine Mesylate 1 mg 09/07/22 23:39 09/11/22 09:11 Benztropine 1 Mg Tablet PO 1 mg BID PRN Administration Mild Extrapyramidal symptoms Buspirone HCl 10 mg 09/10/22 09:00 09/11/22 09:11 Buspirone 10 Mg Tablet PO 10 mg BID ANGEL Administration Hydroxyzine Pamoate 50 mg 09/07/22 23:39 09/11/22 00:02 Hydroxyzine 25 Mg Capsule PO 50 mg Q6H PRN Administration ANXIETY Ibuprofen 800 mg 09/07/22 23:38 09/10/22 13:11 Ibuprofen 800 Mg Tablet PO 800 mg Q6H PRN Administration pain Levetiracetam 500 mg 09/08/22 09:00 09/11/22 09:11 Levetiracetam 500 Mg Tablet PO 500 mg DAILY ANGEL Administration Levetiracetam 1,000 mg 09/08/22 21:00 09/10/22 20:20 Levetiracetam 500 Mg Tablet PO 1,000 mg BEDTIME ANGEL Administration Lisinopril 20 mg 09/08/22 09:00 09/11/22 09:12 Lisinopril 20 Mg Tablet PO 20 mg DAILY ANGEL Administration Nicotine Polacrilex 2 mg 09/07/22 23:39 09/08/22 01:11 Nicotine 2 Mg Gum BUCCAL 2 mg Q2H PRN Administration NICOTINE WITHDRAWAL Nicotine Polacrilex 4 mg 09/08/22 17:50 09/11/22 12:10 Nicotine 4 Mg Lozenge MUCOUS MEM 4 mg Q2H PRN Administration NICOTINE CRAVINGS Olanzapine 5 mg 09/07/22 23:39 09/09/22 20:59 Olanzapine 5 Mg Odt PO 5 mg Q4H PRN Administration Agitation/Psychosis Oxycodone HCl 5 mg 09/07/22 23:38 09/11/22 09:11 Oxycodone 5 Mg Ir Tab/Cap PO 5 mg Q4H PRN Administration MODERATE PAIN Paliperidone 6 mg 09/10/22 09:00 09/11/22 09:12 Paliperidone Er 6 Mg Tablet PO 6 mg DAILY ANGEL Administration Pantoprazole Sodium 40 mg 09/08/22 09:00 09/11/22 09:[address] 40 Mg Tablet PO 40 mg DAILY ANGEL Administration Quetiapine Fumarate 100 mg 09/08/22 21:00 09/11/22 09:27 Quetiapine 100 Mg Tablet PO 100 mg 0900,2100 ANGEL Administration Trazodone HCl 50 mg 09/07/22 23:39 09/10/22 20:20 Trazodone 50 Mg Tablet PO 50 mg BEDTIME PRN Administration SLEEP PFSH Acute PFSH: Social History Smoking and tobacco status: current every day smoker Female Reproductive History: Date of last menstrual period: 08/17/22 Vitals/I&O/Wt Last Vital Signs Temp 97.9 F 09/10/22 19:55 Pulse 100 09/10/22 19:55 Resp 17 09/11/22 09:11 BP 100/62 09/10/22 19:55 Pulse Ox 97 09/10/22 19:55 O2 Del Method Room Air 09/10/22 19:55 Physical Exam Narrative: The patient's right wrist is immobilized in a sugar-tong splint. She has swelling in her digits and her thumb. She will minimally flex and extend her ulnar 4 fingers as well as extend oppose and abduct her thumb. Sensation is intact to light touch. Data 09/07/22 16:52 09/07/22 16:52 Other data: 3 views of the right wrist are personally interpreted dated 09/07/2022. The patient has a intra-articular fracture of the distal radius. There is a sagittal split in the lunate facet. There is dorsal comminution. There is approximately 30 degrees dorsal angulation of the joint. A&P Assessment and plan (1) Fracture of right distal radius: The patient has a unstable displaced intra-articular fracture of the right distal radius. I discussed treatment options with him. In his present position this would not be only a cosmetic concern but likely functional. I think the best choice would be open reduction and internal fixation. I do not feel been stable reduction could be obtained with closed reduction alone. I think our options at this point would be srugical stabilizaion. I warned the patient with nonoperative use she would likely have deformity of her wrist and possibly pain and limited strength. I discussed risks with pinning including pin tract infection and the need for additional immobilization. I feel a very good result could be obtained with open reduction and internal fixation. I discussed open reduction internal fixation with the patient in detail. I told the patient that I think this would get worse the most rapid return of function. We can restore radiographic parameters much closer to normal and I think we can ensure her a very good long-term outcome. I discussed risks of surgery including bleeding, infection, unlikely but possible nerve injury. I discussed unlikely complications with tendons including tendon rupture. I discussed the possible need for hardware removal. The patient expressed understanding, understand the alternatives and agreed to proceed with surgery. Coding [facility] Fracture of right distal radius S52.501A
--- NOTE | 2022-09-11 14:08 | ECG_ITS ---
[facility] Test Date: 2022-09-11 Pat Name: Trinity Chao Department: Room: 104 Gender: Female Calibration Technician: : 1990 Requested By: Fredy Chadwick Order Number: [id number] Freddy MD: Orlando Goldberg M.D. Measurements Intervals Delta Rate: 83 P: 56 CA: 128 QRS: 65 QRSD: 89 T: 43 QT: 365 QTc: 430 Interpretive Statements SINUS RHYTHM Compared to ECG 06/26/2018 18:14:02 T-wave abnormality no longer present Electronically Signed On 09-11-2022 16:27:36 CDT by Orlando Goldberg M.D. [id number]
--- NOTE | 2022-09-11 14:10 | PC.NURSE ---
Patient presented to Nurses station C/O dizziness. Was assisted back to her room. B/P 84/50 HR 106. Nurse notified by PAPER PATTERN INSPECTOR, recehecked orthostatics, jovannynet unable to stand 100/59/ lying 67/50 sitting, aptient was unable to stand. Dr Damon informed, Dr Pimentel called for consult. Repeat orthostatics 102/64 85 lying and standing HR 145, would not register BP. Nursing sup requested Rapid be called. Dr Chadwick reposnded, to transfer patient.
--- NOTE | 2022-09-11 14:15 | PM.CONSULT ---
Providers/Reason For Consult Consulting Physician/Specialty*: Hospitalist Reason for Consult*: RApid response for hypotension Attending Physician: Kennedy Damon MD History of Present Illness History of Present Illness Trinity Chao is a 32 year old female with borderline personality disorder, depression, suicidal ideation, history of methamphetamine abuse, cannabis use disorder, describing a fall roughly 8 feet from a wall and then landing on her right arm, she has been diagnosed with intra-articular fracture of distal radius. Rapid response was called for her orthostatic hypotension and tachycardia. Patient is experiencing menstrual bleeding, no active diarrhea or vomiting. She was orthostatic, she is not endorsing any diarrhea. At the time of my evaluation she was awake and alert laying supine complaining of mild nausea. Blood pressure 96/47 mm 3, heart rate high 90s, she will be transferred to CSU until fine [facility] bed. She is going for surgical intervention tomorrow. We will hydrate with IV fluids. Review of Systems Eyes: Denies: change in vision ENMT: Denies: throat pain Card: Denies: chest pain Resp: Denies: dyspnea GI: Reports: nausea : Denies: flank pain Musc: Reports: extremity pain; Denies: neck pain Skin/Breast: Denies: rash Neuro: Reports: headache(s) Psych: Reports: anxiety and depression Medications/Allergies Home Medications Medication Instructions Recorded Confirmed Last Taken Type levetiracetam 500 mg tablet 500 mg PO QAM seizure 08/30/19 09/07/22 09/10/19 History (Kera) vit no.95-ferrous 1 tab PO DAILY 08/30/19 09/07/22 09/10/19 History fumarate 28 mg-folic acid 800 mcg tablet () hydrocodone 5 mg-acetaminophen 325 1 tab PO Q6H PRN pain #15 tabs 09/06/22 09/07/22 Unknown Rx mg tablet levetiracetam 1,000 mg tablet 1,000 mg PO DAILY 09/07/22 09/07/22 Unknown History lisinopril 20 mg tablet 20 mg PO DAILY 09/07/22 09/07/22 Unknown History quetiapine 100 mg tablet 100 mg PO BID 09/07/22 09/07/22 Unknown History Allergies Allergy/AdvReac Type Severity Reaction Status Date / Time No Known Allergies Allergy Verified 09/06/22 13:56 Current Medications Generic Name Dose Route Start Last Admin Trade Name Freq PRN Reason Stop Dose Admin Acetaminophen 650 mg 09/07/22 23:39 09/10/22 15:45 Acetaminophen 325 Mg Tablet PO 650 mg Q4H PRN Administration MILD PAIN Benztropine Mesylate 1 mg 09/07/22 23:39 09/11/22 09:11 Benztropine 1 Mg Tablet PO 1 mg BID PRN Administration Mild Extrapyramidal symptoms Buspirone HCl 10 mg 09/10/22 09:00 09/11/22 09:11 Buspirone 10 Mg Tablet PO 10 mg BID ANGEL Administration Hydroxyzine Pamoate 50 mg 09/07/22 23:39 09/11/22 00:02 Hydroxyzine 25 Mg Capsule PO 50 mg Q6H PRN Administration ANXIETY Ibuprofen 800 mg 09/07/22 23:38 09/10/22 13:11 Ibuprofen 800 Mg Tablet PO 800 mg Q6H PRN Administration pain Levetiracetam 500 mg 09/08/22 09:00 09/11/22 09:11 Levetiracetam 500 Mg Tablet PO 500 mg DAILY ANGEL Administration Levetiracetam 1,000 mg 09/08/22 21:00 09/10/22 20:20 Levetiracetam 500 Mg Tablet PO 1,000 mg BEDTIME ANGEL Administration Lisinopril 20 mg 09/08/22 09:00 09/11/22 09:12 Lisinopril 20 Mg Tablet PO 20 mg DAILY ANGEL Administration Nicotine Polacrilex 2 mg 09/07/22 23:39 09/08/22 01:11 Nicotine 2 Mg Gum BUCCAL 2 mg Q2H PRN Administration NICOTINE WITHDRAWAL Nicotine Polacrilex 4 mg 09/08/22 17:50 09/11/22 12:10 Nicotine 4 Mg Lozenge MUCOUS MEM 4 mg Q2H PRN Administration NICOTINE CRAVINGS Olanzapine 5 mg 09/07/22 23:39 09/09/22 20:59 Olanzapine 5 Mg Odt PO 5 mg Q4H PRN Administration Agitation/Psychosis Oxycodone HCl 5 mg 09/07/22 23:38 09/11/22 09:11 Oxycodone 5 Mg Ir Tab/Cap PO 5 mg Q4H PRN Administration MODERATE PAIN Paliperidone 6 mg 09/10/22 09:00 09/11/22 09:12 Paliperidone Er 6 Mg Tablet PO 6 mg DAILY ANGEL Administration Pantoprazole Sodium 40 mg 09/08/22 09:00 09/11/22 09:[address] 40 Mg Tablet PO 40 mg DAILY ANGEL Administration Quetiapine Fumarate 100 mg 09/08/22 21:00 09/11/22 09:27 Quetiapine 100 Mg Tablet PO 100 mg 0900,2100 ANGEL Administration Trazodone HCl 50 mg 09/07/22 23:39 09/10/22 20:20 Trazodone 50 Mg Tablet PO 50 mg BEDTIME PRN Administration SLEEP PFSH Acute PFSH: Medical History Substance abuse Family History Other Family history of premature coronary artery disease Social History Smoking and tobacco status: current every day smoker Female Reproductive History: Date of last menstrual period: 08/17/22 Vitals/I&O/Wt Last Vital Signs Temp 98 F 09/11/22 13:28 Pulse 106 H 09/11/22 13:28 Resp 17 09/11/22 13:28 BP 84/50 09/11/22 13:28 Pulse Ox 98 09/11/22 13:28 O2 Del Method Room Air 09/11/22 13:28 Physical Exam Narrative: Right arm covered in splint Awake and alert GCS 15 Hypertensive Tachycardic Clinically looks slightly dehydrated Awake and alert nonfocal neuro exam GCS 15 No abdominal pain Dental caries Data 09/07/22 16:52 09/07/22 16:52 A&P Assessment and plan (1) Suicidal ideation: (2) Depression: (3) Fracture of right wrist: (4) Methamphetamine use disorder, severe: (5) Cannabis use disorder: (6) Fracture of right distal radius: Plan Intra-articular distal radial fracture Patient is hypotensive Orthostatic hypotension positive Experiencing menstrual bleeding Start IV fluids She is not beta-hCG unremarkable TSH normal Previous hemoglobin is around 12 I will keep her n.p.o. after midnight Opioids for analgesia Continue IV fluids overnight We will request echo before surgical intervention Her current low blood pressure could be related to active menstrual bleeding and use of anxiolytics Hold lisinopril preoperatively Patient endorsing family history of coronary disease Full code N.p.o. after midnight Dr. Dietrich is plan for surgical intervention tomorrow During rep response I requested CBC BMP as single set of troponin, EKG showing sinus rhythm Updated psychiatrist Self interpretation of EKG: Sinus rhythm Consult Attestations Medical Necessity Statement: As per neuropsychiatric Diagnoses Suicidal ideation R45.851 Depression F32.A Fracture of right wrist S62.101A Methamphetamine use disorder, severe F15.20 Cannabis use disorder F12.90 Fracture of right distal radius S52.501A
[2022-09-11 14:31] LABS: Hematocrit 43.6 % (37.0-47.0); Hemoglobin 13.1 g/dL (11.5-15.3); Mean Corpuscular Hemoglobin 28.9 pg (28.0-34.0); Mean Platelet Volume 10.2 fL (7.4-10.4); Platelet Count 282 10^3/cmm (130-400); Red Blood Count 4.54 10^6/uL (4.1-5.3); Red Cell Distribution Width 13.2 % (12.1-15.1); White Blood Count 11.9 10^3/uL (4.0-10.0)
[2022-09-11 14:49] LABS: Alanine Aminotransferase 25 U/L (0-33); Albumin Level 3.9 g/dL (3.5-5.2); Alkaline Phosphatase 74 U/L (35-105); Anion Gap 14.8 (5-19); Aspartate Amino Transferase 18 U/L (0-32); Blood Urea Nitrogen 18 mg/dL (6-20); Carbon Dioxide 24 mmol/L (22-29); Chloride 102 mmol/L (98-107); Globulin 2.2 g/dL (1.3-4.6); Glomerular Filtration Rate 98.3 mL/min (90-130); Glucose 94 mg/dL (65-115); Osmolality Calculated 284 mOsm/kg (285-295); Potassium 4.8 mmol/L (3.5-5.1); Sodium 136 mmol/L (136-145); Total Bilirubin 0.4 mg/dL (0.15-1.2); Total Protein 6.1 g/dL (6.6-8.7)
[2022-09-11 14:53] LABS: Troponin T (5th) Once 6 ng/L (0-10)
[2022-09-11 15:10] LABS: Absolute Segmented Neutrophil 8.7 10/cmm (1.6-7.1); Lymphocytes 19 %; Monocytes Absolute 0.6 10^3/cmm (0.1-0.6); Segmented Neutrophils 73 %; Total Cells Counted 100 (0-100)
[2022-09-11 15:11] LABS: Absolute Eosinophils 0.3 10^3/cmm (0.0-0.7); Absolute Neutrophil 8.7 10^3/cmm (1.4-6.5); Eosinophils 3 %; Lymphocytes Absolute 2.3 10^3/cmm (1.2-3.4); Platelet Estimate Normal (Normal)
--- NOTE | 2022-09-11 15:26 | USCV_ITS ---
Trinity Chao Age: 32 Gender: F : 1990 Exam Date: 09/11/2022 16:06 Ordering Phys: Fredy Chadwick MD Technologist: Stevie Olivia Exam Location: [facility] Indication: hypotension BP: 114 / 62 HR: 82 Rhythm: Sinus Technical Quality: Adequate MEASUREMENTS (Male / Female) Normal Values 2D ECHO LV Diastolic Diameter PLAX 4.5 cm 4.2 - 5.9 / 3.9 - 5.3 cm LV Systolic Diameter PLAX 3.3 cm IVS Diastolic Thickness 1.3 cm 0.6 - 1.0 / 0.6 - 0.9 cm IVS Systolic Thickness 1.8 cm LVPW Diastolic Thickness 1.3 cm 0.6 - 1.0 / 0.6 - 0.9 cm LVPW Systolic Thickness 1.4 cm LVOT Diameter 2.1 cm LV Ejection Fraction 2D Teich 52.3 % LV Ejection Fraction MOD 2C 74.0 % LV Ejection Fraction 2C AL 73.1 % LA Diameter 2.9 cm IVC Diameter 0.7 cm M-MODE Aortic Annulus Diameter 3.3 cm LA Ao Ratio MM 0.9 MV E Point Septal Separation 0.6 cm DOPPLER AV Peak Velocity 132.0 cm/s LVOT Peak Velocity 110.0 cm/s AV Area Cont Eq vti 2.7 cm squared AV Area Cont Eq pk 2.8 cm squared MV Area PHT 4.5 cm squared Mitral E to A Ratio 1.0 MV E' Velocity 38.0 cm/s Mitral E to MV E' Ratio 6.3 Mitral E to LV E' Lateral Ratio 6.1 Mitral E to LV E' Septal Ratio 6.5 TR Peak Velocity 156.0 cm/s TR Peak Gradient 9.7 mmHg TV Peak E Velocity 89.0 cm/s Right Atrial Pressure 3.0 mmHg Pulmonary Artery Systolic Pressu 12.7 mmHg RV Acceleration Time 0.1 s FINDINGS Left Ventricle Normal left ventricular size, systolic function and wall thickness, with no regional wall motion abnormalities. Normal left ventricular wall thickness. Normal diastolic filling pattern. Left ventricular ejection fraction is estimated at 65 %. Right Ventricle The right ventricle is normal in size and function. Normal right ventricular systolic pressure. Right Atrium The right atrium is normal in size. Left Atrium The left atrium is normal in size. Mitral Valve Structurally normal mitral valve without significant stenosis or prolapse. There is no mitral regurgitation. Aortic Valve Structurally normal aortic valve without significant sclerosis or stenosis. There is no aortic regurgitation. Tricuspid Valve Structurally normal tricuspid valve without significant stenosis or regurgitation. Pulmonary artery systolic pressure is normal. Pulmonic Valve Structurally normal pulmonic valve without significant stenosis. There is no pulmonic regurgitation. Pericardium Normal pericardium without effusion. Aorta Normal ascending aorta dimension. IVC The inferior vena cava appears normal. CONCLUSIONS Normal transthoracic echocardiogram. There are no prior echocardiogram studies to compare. Dr. Jose Cole MD (Electronically Signed) Final Date: 12 September 2022 07:14 S
[2022-09-11] MEDS: sodium chloride 0.9% 1,000 ML 100 ML IV (15:52)
[2022-09-11] MEDS: acetaminophen 325 mg Tablet 650 MG PO ×2 (17:40→23:00)
[2022-09-11] MEDS: levETIRAcetam 500 mg Tablet 1000 MG PO (19:59)
[2022-09-12] VITALS (20 sets, daily range): BP systolic 92–124; BP diastolic 53–76; PULSE 69–119; RESP 14–21; TEMP 36.2–36.9; O2SAT 94–98
--- NOTE | 2022-09-12 | XR_ITS ---
WS: [id number] Exam: XR wrist RT 2V [id number] Date/Time of Exam: 09/12/2022 12:00 AM Reason For Exam: SURGICAL PROCEDURE AP and lateral C-arm images of the right wrist following surgery demonstrate volar plate and screw fi xation involving a fracture of the distal radius. Alignment is satisfactory for healing.
[2022-09-12] MEDS: sodium chloride 0.9% 1,000 ML 100 ML IV ×2 (00:26→11:16)
--- NOTE | 2022-09-12 04:55 | PC.NURSE ---
Report called to Anatoly on [facility]. Informed patient would be up soon with a sitter at bedside. No further questions.
[2022-09-12] MEDS: oxyCODONE 5 mg IR Tab/Cap PO ×2 (05:20→13:02)
--- NOTE | 2022-09-12 08:55 | P.PN_ITS ---
Subjective Subjective: Patient is asking for pain medication No overnight events Awaiting for surgery She might able to go back to NPU after surgery Echo unremarkable Her blood pressure and heart rate has remained stable with IV fluids Vitals/I&O/Wt Last Vital Signs Temp 98.0 F 09/12/22 05:22 Pulse 81 09/12/22 05:22 Resp 16 09/12/22 05:22 BP 110/68 09/12/22 05:22 Pulse Ox 97 09/12/22 05:22 O2 Del Method Room Air 09/12/22 05:22 09/11/22 09/12/22 09/12/22 22:59 06:59 14:59 Intake Total 600 / 600 2406.667 / 3006.667 Balance 600 / 600 2406.667 / 3006.667 Physical Exam Narrative: Patient clinically doing better Right arm in a splint No signs of cyanosis or vascular compromise Awake and alert GCS 15 doing well on room air Abdomen soft One-to-one sitter at side Nonfocal neuro exam Data 09/11/22 14:15 09/11/22 14:15 A&P Assessment and plan (1) Fracture of right distal radius: (2) Cannabis use disorder: (3) Methamphetamine use disorder, severe: (4) Fracture of right wrist: (5) Depression: Plan Patient is going for surgical intervention today Echo is unremarkable patient did very well with IV fluids overnight, no signs of orthostatic hypotension or tachycardia I do believe that was precipitated due to use of anxiolytics and her active menstrual bleed Opioids for analgesia along bowel regimen We can monitor her 1 more day on MedSurg after her surgery and then transfer her to NPU tomorrow Full code N.p.o. Attestations 2 Medical Necessity Statement*: As per NPU Diagnoses Fracture of right distal radius S52.501A Cannabis use disorder F12.90 Methamphetamine use disorder, severe F15.20 Fracture of right wrist S62.101A Depression F32.A
[2022-09-12] MEDS: HYDROmorphone 1 mg/mL INJ 1 mL 0.2 MG IVP (08:56)
[2022-09-12] MEDS: levETIRAcetam 500 mg Tablet PO (08:57)
[2022-09-12] MEDS: BuSPIRONE 10 mg Tablet PO ×2 (08:57→20:35)
[2022-09-12] MEDS: pantoprazole DR 40 mg Tablet PO (08:58)
[2022-09-12] MEDS: quetiapine 100 mg Tablet PO ×2 (09:33→20:35)
[2022-09-12] MEDS: nicotine 4 mg lozenge MUCOUS MEM ×3 (09:33→20:13)
[2022-09-12 13:14] LABS: HCG Qualitative Urine. Negative (Negative)
--- NOTE | 2022-09-12 14:50 | ANES.PREANE2 ---
Pre-Anesthetic Assessment Height/Weight: Height 1.83 m Weight 99.79 kg Temp Pulse Resp BP Pulse Ox O2 Del Method 98.5 F 109 H 18 97/57 97 Room Air 09/12/22 13:03 09/12/22 13:03 09/12/22 13:03 09/12/22 13:03 09/12/22 13:03 09/12/22 13:03 Preop Diagnosis: Right distal radius fracture Operation Date: 09/12/22 15:25 Proposed Procedures p ORIF Wrist ORIF Distal Radius 35198,S52.5(Right) - Manolo Dietrich MD Familial anesthetic complications: None Was Beta Jazzmine taken within 24 hours: N/A Was Clonidine taken within 24 hours: N/A Last intake: Intake Last Liquid Date 09/11/22 Last Liquid Time 21:00 Last Solid Date 09/11/22 Last Solid Time 18:00 Social Alcohol and Tobacco Exam alert, oriented x 3 and regular rate & rhythm Airway Submandibular: within normal limits Cervical ROM: within normal limits Mallampati: Class II Dentition: chipped Comments: Comments: Very poor dentition. Pulmonary Chronic Obstructive Pulmonary Disease CV/HEM Hypertension Neuropsych Anxiety, Depression and Seizure Anesthetic Plan ASA status: 3 Anesthesia: General and Regional (specify below) (Right upper extremity blk) Medications/Allergies Home Medications Medication Instructions Recorded Confirmed Last Taken Type levetiracetam 500 mg tablet 500 mg PO QAM seizure 08/30/19 09/07/22 09/10/19 History (Keppra) vit no.95-ferrous 1 tab PO DAILY 08/30/19 09/07/22 09/10/19 History fumarate 28 mg-folic acid 800 mcg tablet () hydrocodone 5 mg-acetaminophen 325 1 tab PO Q6H PRN pain #15 tabs 09/06/22 09/07/22 Unknown Rx mg tablet levetiracetam 1,000 mg tablet 1,000 mg PO DAILY 09/07/22 09/07/22 Unknown History lisinopril 20 mg tablet 20 mg PO DAILY 09/07/22 09/07/22 Unknown History quetiapine 100 mg tablet 100 mg PO BID 09/07/22 09/07/22 Unknown History Allergies Allergy/AdvReac Type Severity Reaction Status Date / Time No Known Allergies Allergy Verified 09/06/22 13:56 Current Medications Generic Name Dose Route Start Last Admin Trade Name Freq PRN Reason Stop Dose Admin Acetaminophen 650 mg 09/07/22 23:39 09/11/22 23:00 Acetaminophen 325 Mg Tablet PO 650 mg Q4H PRN Administration MILD PAIN Buspirone HCl 10 mg 09/10/22 09:00 09/12/22 08:57 Buspirone 10 Mg Tablet PO 10 mg BID ANGEL Administration Sodium Chloride 1,000 mls @ 100 mls/hr 09/11/22 15:26 09/12/22 11:16 Sodium Chloride 0.9% IV 100 mls/hr .Q10H ANGEL Administration Levetiracetam 500 mg 09/08/22 09:00 09/12/22 08:57 Levetiracetam 500 Mg Tablet PO 500 mg DAILY ANGEL Administration Levetiracetam 1,000 mg 09/08/22 21:00 09/11/22 19:59 Levetiracetam 500 Mg Tablet PO 1,000 mg BEDTIME ANGEL Administration Nicotine Polacrilex 2 mg 09/07/22 23:39 09/08/22 01:11 Nicotine 2 Mg Gum BUCCAL 2 mg Q2H PRN Administration NICOTINE WITHDRAWAL Nicotine Polacrilex 4 mg 09/08/22 17:50 09/12/22 13:00 Nicotine 4 Mg Lozenge MUCOUS MEM 4 mg Q2H PRN Administration NICOTINE CRAVINGS Oxycodone HCl 5 mg 09/07/22 23:38 09/12/22 13:02 Oxycodone 5 Mg Ir Tab/Cap PO 5 mg Q4H PRN Administration MODERATE PAIN Paliperidone 6 mg 09/10/22 09:00 09/11/22 09:12 Paliperidone Er 6 Mg Tablet PO 6 mg DAILY ANGEL Administration Pantoprazole Sodium 40 mg 09/08/22 09:00 09/12/22 08:[address] 40 Mg Tablet PO 40 mg DAILY ANGEL Administration Quetiapine Fumarate 100 mg 09/08/22 21:00 09/12/22 09:33 Quetiapine 100 Mg Tablet PO 100 mg 0900,2100 ANGEL Administration Trazodone HCl 50 mg 09/07/22 23:39 09/10/22 20:20 Trazodone 50 Mg Tablet PO 50 mg BEDTIME PRN Administration SLEEP PFSH Anesthesia Medical History Substance abuse Family History Other Family history of premature coronary artery disease Social History Smoking and tobacco status: current every day smoker Female Reproductive History Date of last menstrual period: 08/17/22 Data Anesthesia 09/11/22 14:15 09/11/22 14:15 Short CBC 09/11/22 Range/Units 14:15 WBC 11.9 H (4.0-10.0) 10^3/uL Hgb 13.1 (11.5-15.3) g/dL Hct 43.6 (37.0-47.0) % MCV 96.0 (81-99) fl Plt Count 282 (130-400) 10^3/cmm BMP 09/11/22 14:15 Sodium 136 Potassium 4.8 Chloride 102 Carbon Dioxide 24 BUN 18 Creatinine 0.7 Glucose 94 Calcium 9.0 Cardiac Enzymes 09/11/22 Range/Units 14:15 Troponin T Gen 5 ng/L 6 (0-10) ng/L Liver Function 09/11/22 Range/Units 14:15 Total Bilirubin 0.4 (0.15-1.2) mg/dL AST 18 (0-32) U/L ALT 25 (0-33) U/L Alkaline Phosphatase 74 (35-105) U/L Albumin 3.9 (3.5-5.2) g/dL Cardiac Studies: Echocardiogram 09/11/22
[2022-09-12] MEDS: sodium chloride 0.9% 1,000 ML 30 ML IV (15:01)
[2022-09-12] MEDS: HYDROmorphone 1 mg/mL INJ 1 mL 0.5 MG IVP ×2 (15:02→17:42)
--- NOTE | 2022-09-12 16:03 | W.PM.OPSUD ---
Surgery/Procedure H&P Update DATE OF PROCEDURE: September 12, 2022 DATE H&P PERFORMED: 09/11/22 H&P UPDATE INFORMATION: I have reviewed H&P completed within last 30 days PREOP DIAGNOSIS: Right distal radius fracture PLANNED PROCEDURE: Operation Date: 09/12/22 15:25 Proposed Procedures p ORIF Wrist ORIF Distal Radius 16143,S52.5(Right) - Manolo Dietrich MD
[2022-09-12] MEDS: ceFAZolin 2,000 MG in sodium chloride 0.9% (plus) 50 ML 100 MG IV (16:15)
--- NOTE | 2022-09-12 17:37 | P.OP_ITS ---
Operative Report Date of procedure: September 12, 2022 Pre-op diagnosis: Preop Diagnosis 3 part right distal radius fracture Post-op diagnosis: same Procedure done: Open reduction and internal fixation right distal radius three-part fracture Implants: [place] [employer] 3 hole short intermediate plate Pathology: none sent Surgeon: Manolo Dietrich Anesthesia: General and Nerve Block (Axillary nerve bllock) Estimated blood loss (mL): 5 Tourniquet time (min): 25 Findings: The patient had a three-part intra-articular fracture of the right distal radius consisting of a lunate facet and radial styloid intra-articular fragments. Condition: stable Disposition: PACU Procedure: Initial attempts were made at closed reduction however a satisfactory stable reduction could not be obtained. A decision was made to proceed with open reduction internal fixation.A 5 cm long incision was made along over the flexor carpi radialis tendon. Dissection was carried down through the tendon sheath. Dissection was carried down bluntly to the pronator quadratus. The pronator quadratus was elevated off of the distal radius leaving a cuff for later repair. Closed reduction was accomplished of the distal radius. A [place] [employer]x short intermediate plate was applied. The lunate and radial styloid fracture fragments were then reduced to the plate and held manually for distal screw fixation. It was fixed distally with 7 locking screws and proximally with 1 locking and 2 bicortical screws. Intraoperative imaging showed excellent position of the hardware. The wound was irrigated with saline. The pronator quadratus was reapproximated with 2-0 Vicryl. Subcutaneous tissues were closed with 2-0 Vicryl. The skin was closed with skin marely. Sterile dressings were applied. The patient was taken to outpatient surgery in stable condition.
[2022-09-12] MEDS: ondansetron 2 mg/ML SDV 2 mL 4 MG IVP (17:42)
--- NOTE | 2022-09-12 17:46 | ANES.PROC ---
Anesthesia Procedures Procedure/Date: 09/12/22 Nerve Block ^: Nerve Block 1: Main Anesthesia: general anesthesia Time Out Performed: Yes Consent: requested by attending/covering physician, from patient, risks and benefits reviewed and patient agrees to proceed Nerve block location: interscalene (right) Anesthesia monitors applied: pulse oximetry, EKG, BP cuff and oxygen Nerve block position: supine Anesthetic Used: ropivicaine 0.5% Amount of anesthesia used (mL): 30 Ultrasound used to: recognize landmarks and visualize and ID brachial plexus Nerve Stimulator Used?: No Interscalene/Femoral BLK: 2 stimuplex 22 g needle used for position and inplane approach Injection: neg aspiration of heme Patient Tolerated Procedure: well Complications: none
--- NOTE | 2022-09-12 17:47 | ANE.PACU2 ---
Inpatient post-anesthesia follow up: Airway intact: Yes Vital signs: Temperature 98.1 F Pulse Rate 102 Respiratory Rate 14 Blood Pressure 111/56 Pulse Oximetry 96 Oxygen Delivery Me thod Room Air Oxygen Flow Rate Fraction of Inspir ed Oxygen Hydration adequate: Yes Nausea and vomiting: No Pain level: 2 Mental status: Baseline
--- NOTE | 2022-09-12 18:57 | W.PM.NPUPNS ---
Subjective NPU Subjective: Patient presented today reporting feeling better and looking the part. She is status post surgery without any notable ill effects on evaluation. We discussed the fact that she likely would not come down to the Neuropsych Unit till tomorrow morning. We also discussed continuing plans for discharge Friday to . Mental Status Exam MSE Comments: This is an overweight versus obese white female in hospital scrubs with limited grooming and eye contact. Bandages noteworthy around her right hand/forearm. No abnormal movements. More cooperative with exam in no acute distress. Speech was more normal rate and volume. Mood described as getting better, affect congruent. Thought process linear. Thought content: Patient denied current suicidal or homicidal thoughts, there were no delusions reported or noted. She did not report any auditory or visual hallucinations. Attention and concentration were improving and memory was more reliable but none were formally tested. She is alert and oriented times 3. Insight and judgment are improving and impulse control is improving but limited. Vitals/I&O/Wt Last Vital Signs Temp 97.4 F L 09/12/22 19:10 Pulse 96 09/12/22 19:10 Resp 16 09/12/22 19:10 BP 121/75 09/12/22 19:10 Pulse Ox 98 09/12/22 19:10 O2 Del Method Room Air 09/12/22 19:10 09/12/22 14:59 Intake Total 1000 / 1000 Output Total Balance 1000 / 1000 Data NPU 09/13/22 05:31 09/13/22 05:31 A&P Assessment and plan (1) Fracture of right wrist: (2) Depression: (3) Suicidal ideation: (4) Methamphetamine use disorder, severe: (5) Cannabis use disorder: Plan This is a 32-year-old white female with a long history of mental health and addiction issues who presented to the hospital with a broken right hand reporting suicidal and homicidal thoughts, medications were not working well. 1. Continue current medication. Started BuSpar 10 mg p.o. twice daily and Invega 6 mg p.o. every morning and consider the injectable if appropriate. 2. Continue one-to-one given the bandage until Ortho can consider alternatives. Appreciate ortho consult and will plan for procedure on . 3. Encourage individual, group and milieu therapies. 4. Encourage sober living treatment after discharge at the hospital care to which she is willing to commit. 5. Appreciate hospitalist interventions and agree with patient returning to the neuropsychiatric unit when medically cleared either tonight or tomorrow morning. Involuntary Hold Information 96 Hour Hold: 96 Hour Involuntary Admission: No Attestations NPU Medical Necessity Statement*: Inpatient hospitalization is medically necessary and the clinically appropriate intervention at this time. We will monitor/initiate medications and make changes as indicated. Likely length of stay 4 days. Coding Level of Care Code Acute Code for g Fwd Diagnoses Fracture of right wrist S62.101A Depression F32.A Suicidal ideation R45.851 Methamphetamine use disorder, severe F15.20 Cannabis use disorder F12.90
[2022-09-12] MEDS: levETIRAcetam 500 mg Tablet 1000 MG PO (20:35)
[2022-09-12] MEDS: CELEcoxib 200 mg Capsule PO (20:35)
[2022-09-13] VITALS (10 sets, daily range): BP systolic 110–124; BP diastolic 68–82; PULSE 74–115; RESP 16–20; TEMP 36.5–36.8; O2SAT 96–98
[2022-09-13] MEDS: ceFAZolin 1,000 MG in sodium chloride 0.9% (plus) 50 ML 100 MG IV ×2 (00:04→08:08)
[2022-09-13] MEDS: sodium chloride 0.9% 1,000 ML 100 ML IV (00:21)
[2022-09-13 05:40] LABS: Basophils % 0.1 %; Eosinophils % 0.1 %; Lymphocytes # 1.1 10^3/uL (0.8-4.8); Lymphocytes % 8.2 %; Mean Corpuscular HGB Conc 32.5 g/dL (30.0-36.0); Mean Corpuscular Volume 89.3 fl (81-99); Mean Platelet Volume 10.1 fL (7.4-10.4); Monocytes # 0.8 10^3/uL (0.2-0.9); Monocytes % 5.6 %; Neutrophils # 11.65 10^3/uL (1.8-7.7); Neutrophils % 85.6 %; Nucleated Red Blood Cells % 0 %; Platelet Count 286 10^3/cmm (130-400); Red Blood Count 4.48 10^6/uL (4.1-5.3); Red Cell Distribution Width 12.8 % (12.1-15.1); White Blood Count 13.6 10^3/uL (4.0-10.0)
[2022-09-13] MEDS: HYDROcodone-acetaminophen 5-325 mg Tablet PO ×3 (05:40→21:28)
[2022-09-13 06:00] LABS: Anion Gap 16.4 (5-19); Blood Urea Nitrogen 15 mg/dL (6-20); Calcium 8.9 mg/dL (8.5-10.5); Carbon Dioxide 22 mmol/L (22-29); Chloride 103 mmol/L (98-107); Glomerular Filtration Rate 144.9 mL/min (90-130); Glucose 112 mg/dL (65-115); Osmolality Calculated 286 mOsm/kg (285-295); Potassium 4.4 mmol/L (3.5-5.1); Sodium 137 mmol/L (136-145)
[2022-09-13] MEDS: pantoprazole DR 40 mg Tablet PO (08:06)
[2022-09-13] MEDS: levETIRAcetam 500 mg Tablet PO (08:06)
[2022-09-13] MEDS: BuSPIRONE 10 mg Tablet PO ×2 (08:06→17:54)
[2022-09-13] MEDS: oxyCODONE 5 mg IR Tab/Cap PO ×2 (08:07→16:52)
[2022-09-13] MEDS: nicotine 4 mg lozenge MUCOUS MEM ×4 (08:35→17:54)
[2022-09-13] MEDS: quetiapine 100 mg Tablet PO ×2 (08:36→20:18)
[2022-09-13] MEDS: HYDROmorphone 1 mg/mL INJ 1 mL 0.2 MG IVP ×2 (08:36→12:43)
[2022-09-13] MEDS: CELEcoxib 200 mg Capsule PO (08:36)
--- NOTE | 2022-09-13 08:51 | PM.PN ---
Subjective Subjective: Patient is doing well postoperatively Asking for opioids I will give her 0.2 mg of IV Dilaudid She can be transferred back to psych unit Continue IV fluids Blood pressure and heart rate has improved Vitals/I&O/Wt Last Vital Signs Temp 97.7 F 09/13/22 04:00 Pulse 74 09/13/22 04:00 Resp 16 09/13/22 08:36 BP 110/68 09/13/22 04:00 Pulse Ox 96 09/13/22 08:36 O2 Del Method Room Air 09/13/22 04:00 09/12/22 09/13/22 09/13/22 22:59 06:59 14:59 Intake Total 1850 / 2850 50 / 2900 Output Total Balance 1845 / 2845 50 / 2895 Physical Exam Narrative: Awake and alert Euvolemic S1, S2 Hemodynamically stable Appropriate mood and affect however anxious appearing Right arm in splint Abdomen soft Nonfocal neuro exam GCS 15 Data 09/13/22 05:31 09/13/22 05:31 A&P Assessment and plan (1) Fracture of right distal radius: (2) Cannabis use disorder: (3) Methamphetamine use disorder, severe: (4) Depression: (5) Suicidal ideation: (6) Orthostatic hypotension: Plan Orthostatic hypotension: Resolved It was related to combination of anxiolytics and opioids with active menstrual bleed Improved with IV fluids Discontinue fluids today and transfer to psych unit Right distal radial fracture status post intervention, postop day 1 No postoperative complications Medical team will sign off For analgesia you can use opioids along bowel regimen Please call if you have any questions Attestations Medical Necessity Statement*: As per psych Diagnoses Fracture of right distal radius S52.501A Cannabis use disorder F12.90 Methamphetamine use disorder, severe F15.20 Depression F32.A Suicidal ideation R45.851 Orthostatic hypotension I95.1
[2022-09-13] MEDS: paliperidone ER 6 mg Tablet PO (10:22)
[2022-09-13] MEDS: nicotine 2 mg Gum BUCCAL (10:32)
--- NOTE | 2022-09-13 15:25 | PC.NURSE ---
called transfer report to Dina Ross RN at 1400
[2022-09-13] MEDS: OLANZapine 5 mg ODT PO (16:20)
--- NOTE | 2022-09-13 19:22 | W.PM.NPUPNS ---
Subjective NPU Subjective: Patient presented today back on the neuropsychiatric unit after her surgery. She denied any significant issues just feeling more and more herself and eager to discharge and get into her recovery services. We discussed the fact that the plan as we understand it [facility] is for her to discharge to them on Friday. She reports that she will be able to manage that over the weekend. She denied any issues from her surgery or any sequela from her dehydration that led to her rapid response to being called due to her diminished blood pressure. Mental Status Exam MSE Comments: This is an overweight versus obese white female in hospital scrubs with improving grooming and eye contact. Bandages noteworthy around her right hand/forearm. No abnormal movements. More cooperative with exam in no acute distress. Speech was more normal rate and volume. Mood described as getting better, affect congruent. Thought process linear. Thought content: Patient denied current suicidal or homicidal thoughts, there were no delusions reported or noted. She did not report any auditory or visual hallucinations. Attention and concentration were improving and memory was more reliable but none were formally tested. She is alert and oriented times 3. Insight and judgment are improving and impulse control is improving but limited. Vitals/I&O/Wt Last Vital Signs Temp 98.2 F 09/13/22 16:27 Pulse 94 09/13/22 16:27 Resp 18 09/13/22 16:52 BP 117/71 09/13/22 16:27 Pulse Ox 97 09/13/22 16:27 O2 Del Method Room Air 09/13/22 04:00 09/13/22 09/13/22 09/13/22 06:59 14:59 22:59 Intake Total 50 / 2900 1200 / 1200 Balance 50 / 2895 1200 / 1200 Data NPU 09/13/22 05:31 09/13/22 05:31 A&P Assessment and plan (1) Fracture of right wrist: (2) Depression: (3) Suicidal ideation: (4) Methamphetamine use disorder, severe: (5) Cannabis use disorder: Plan This is a 32-year-old white female with a long history of mental health and addiction issues who presented to the hospital with a broken right hand reporting suicidal and homicidal thoughts, medications were not working well. 1. Continue current medication. Started BuSpar 10 mg p.o. twice daily and Invega 6 mg p.o. every morning and consider the injectable if appropriate. 2. Continue one-to-one given the bandage until Ortho can consider alternatives. Appreciate ortho treatment. 3. Encourage individual, group and milieu therapies. 4. Encourage sober living treatment after discharge at the hospital care to which she is willing to commit. 5. Appreciate hospitalist interventions and agree with patient returning to the neuropsychiatric unit today. Involuntary Hold Information 96 Hour Hold: 96 Hour Involuntary Admission: No Attestations NPU Medical Necessity Statement*: Inpatient hospitalization is medically necessary and the clinically appropriate intervention at this time. We will monitor/initiate medications and make changes as indicated. Likely length of stay 3 days. Coding Level of Care Code Acute Code for g Fwd Diagnoses Fracture of right wrist S62.101A Depression F32.A Suicidal ideation R45.851 Methamphetamine use disorder, severe F15.20 Cannabis use disorder F12.90
[2022-09-13] MEDS: hyDROXYzine 25 mg Capsule 50 MG PO (20:17)
[2022-09-13] MEDS: levETIRAcetam 500 mg Tablet 1000 MG PO (20:17)
[2022-09-14 03:34] VITALS: RESP 16; O2SAT 98
[2022-09-14] MEDS: oxyCODONE 5 mg IR Tab/Cap 10 MG PO ×3 (03:34→20:12)
[2022-09-14] MEDS: nicotine 4 mg lozenge MUCOUS MEM ×4 (06:44→17:43)
[2022-09-14] MEDS: paliperidone ER 6 mg Tablet PO (08:22)
[2022-09-14] MEDS: HYDROcodone-acetaminophen 5-325 mg Tablet PO ×2 (08:22→16:33)
[2022-09-14] MEDS: levETIRAcetam 500 mg Tablet PO (08:23)
[2022-09-14] MEDS: BuSPIRONE 10 mg Tablet PO (08:23)
[2022-09-14] MEDS: pantoprazole DR 40 mg Tablet PO (08:23)
[2022-09-14] MEDS: quetiapine 100 mg Tablet PO ×2 (08:23→20:13)
--- NOTE | 2022-09-14 09:05 | PC.NURSE ---
Administered 17g Miralax to patient. Patient is reporting hard stools that are small and painful to pass.
[2022-09-14] MEDS: polyethylene glycol 3350 Pkt 17 gm PO ×2 (09:17→17:17)
--- NOTE | 2022-09-14 09:40 | PC.NURSE ---
Patient's right arm assessed. Patient has cap refill less than 2 seconds. Patient has movement in fingers. Patient denies numbness and tingling. Will continue to monitor.
[2022-09-14] MEDS: bisacodyl 5 mg Tablet 10 MG PO ×2 (10:03→17:17)
[2022-09-14 12:51] VITALS: RESP 16
[2022-09-14 15:17] VITALS: BP 121/78; PULSE 80; RESP 17; TEMP 36.6; O2SAT 97
[2022-09-14] MEDS: nicotine 2 mg Gum BUCCAL (15:17)
[2022-09-14] MEDS: hyDROXYzine 25 mg Capsule 50 MG PO (15:21)
--- NOTE | 2022-09-14 15:22 | PC.NURSE ---
Patient reporting anxiety 02/25. Patient agitated. Patient states the reason for anxiety is because she is here at NPU and because of all of the people on the unit. Patient encouraged to go to her room and deep breath exercises. Will continue to monitor.
--- NOTE | 2022-09-14 16:36 | PC.NURSE ---
Patient reporting arm pain 9/10. Patient's sling adjusted and ice applied. Patient given 2 tablets of [place] for pain. Will continue to monitor.
--- NOTE | 2022-09-14 19:05 | P.NPUPN_ITS ---
Subjective NPU Subjective: Presented today reporting that she was really struggling. She identifies that this is the first time in quite a while that she has been sober. And being stuck with her thoughts as being quite challenging. We discussed changes we could make given her anxiety. We discussed the risk benefits and alternatives of increasing her BuSpar and adding a low-dose of Neurontin and she understood and agreed to proceed as is documented in this note. Mental Status Exam MSE Comments: This is an overweight versus obese white female in hospital scrubs with improving grooming and eye contact. Bandages noteworthy around her right hand/forearm. No abnormal movements. More cooperative with exam in moderate distress. Speech was increased l rate and volume. Mood described as feeling anxious and overwhelmed, affect congruent. Thought process linear. Thought content: Patient denied current suicidal or homicidal thoughts, there were no delusions reported or noted. She did not report any auditory or visual hallucinations. Attention and concentration were improving and memory was more reliable but none were formally tested. She is alert and oriented times 3. Insight and judgment are improving and impulse control is limited. Vitals/I&O/Wt Last Vital Signs Temp 97.9 F 09/14/22 15:17 Pulse 80 09/14/22 15:17 Resp 17 09/14/22 15:17 BP 121/78 09/14/22 15:17 Pulse Ox 97 09/14/22 15:17 O2 Del Method Room Air 09/13/22 04:00 09/14/22 09/14/22 09/14/22 06:59 14:59 22:59 Intake Total 1280 / 1280 Output Total 5 / 5 0 / 5 Balance 1275 / 1275 0 / 1275 Data NPU 09/13/22 05:31 09/13/22 05:31 A&P Assessment and plan (1) Fracture of right wrist: (2) Depression: (3) Suicidal ideation: (4) Methamphetamine use disorder, severe: (5) Cannabis use disorder: Plan This is a 32-year-old white female with a long history of mental health and addiction issues who presented to the hospital with a broken right hand reporting suicidal and homicidal thoughts, medications were not working well. 1. Continue current medication. Started BuSpar 10 mg p.o. twice daily in creased and Invega 6 mg p.o. every morning and consider the injectable if appropriate. BuSpar to 15 mg p.o. 3 times daily and added Neurontin 100 mg p.o. 3 times daily. 2. Continue one-to-one given the bandage until Ortho can consider alternatives. Appreciate ortho treatment. 3. Encourage individual, group and milieu therapies. 4. Encourage sober living treatment after discharge at the hospital care to which she is willing to commit. Involuntary Hold Information 96 Hour Hold: 96 Hour Involuntary Admission: No Attestations NPU Medical Necessity Statement*: Inpatient hospitalization is medically necessary and the clinically appropriate intervention at this time. We will monitor/initiate medications and make changes as indicated. Likely length of stay 2 days. Coding Level of Care Code Acute Code for [facility] Fwd Diagnoses Fracture of right wrist S62.101A Depression F32.A Suicidal ideation R45.851 Methamphetamine use disorder, severe F15.20 Cannabis use disorder F12.90
[2022-09-14 19:41] VITALS: BP 111/60; PULSE 93; RESP 18; TEMP 36.6; O2SAT 100
[2022-09-14] MEDS: levETIRAcetam 500 mg Tablet 1000 MG PO (20:11)
[2022-09-14 20:12] VITALS: RESP 16
[2022-09-14] MEDS: gabapentin 100 mg Capsule PO (20:12)
[2022-09-14] MEDS: BuSPIRONE 10 mg Tablet 15 MG PO (20:13)
--- NOTE | 2022-09-14 20:15 | PC.NURSE ---
PRN OxyCODONE given for reported arm pain 01/26.
[2022-09-15] VITALS (7 sets, daily range): BP systolic 119–126; BP diastolic 74–81; PULSE 81–107; RESP 16–18; TEMP 36.3–36.7; O2SAT 97–100; BMI 29.8
[2022-09-15] MEDS: HYDROcodone-acetaminophen 5-325 mg Tablet PO ×3 (03:27→18:07)
--- NOTE | 2022-09-15 03:32 | PC.NURSE ---
PRN 1 tab [place] given per pt request with complaints of arm pain 12/26
[2022-09-15] MEDS: polyethylene glycol 3350 Pkt 17 gm PO ×2 (08:15→17:08)
[2022-09-15] MEDS: gabapentin 100 mg Capsule PO ×3 (08:16→20:07)
[2022-09-15] MEDS: BuSPIRONE 10 mg Tablet 15 MG PO ×3 (08:16→20:05)
[2022-09-15] MEDS: atomoxetine 40 mg Capsule PO (08:16)
[2022-09-15] MEDS: paliperidone ER 6 mg Tablet PO (08:17)
[2022-09-15] MEDS: quetiapine 100 mg Tablet PO ×2 (08:17→20:07)
[2022-09-15] MEDS: pantoprazole DR 40 mg Tablet PO (08:17)
[2022-09-15] MEDS: bisacodyl 5 mg Tablet 10 MG PO ×2 (08:17→17:08)
[2022-09-15] MEDS: nicotine 4 mg lozenge MUCOUS MEM ×5 (08:18→20:09)
[2022-09-15] MEDS: oxyCODONE 5 mg IR Tab/Cap 10 MG PO ×3 (08:18→21:12)
--- NOTE | 2022-09-15 08:20 | PC.NURSE ---
REFUSED SCHEDULED SAM STATED I'M ON THE GABAPENTIN & I DON'T WANT TO TAKE BOTH OF THEM TOGETHER BECAUSE GABAPENTIN IS ALSO USED FOR SEIZURES
--- NOTE | 2022-09-15 09:35 | P.NPUPN_ITS ---
Subjective NPU Subjective: Patient presented today reporting that she is doing okay and a little better with the medications that were started. She continues to be quite somatically preoccupied and also anxious about whether she will be discharged tomorrow. We discussed the fact that [facility] given this [facility] as her bed date and there are generally fairly solid with that. We reported that we would call them in the morning to verify but otherwise it is my plan to discharge tomorrow. She was fairly anxious and was trying to get contingency planning and discussions about the what if's. We simply discussed that if they did not have a bed available we would find out when that bed date would be and discuss and make arrangements based on that information. Mental Status Exam MSE Comments: This is an overweight versus obese white female in hospital scrubs with improving grooming and eye contact. Bandages noteworthy around her right hand/forearm. No abnormal movements. More cooperative with exam in mild distress. Speech was increased rate and normal volume. Mood described as feeling anxious still but a little better affect congruent. Thought process linear. Thought content: Patient denied current suicidal or homicidal thoughts, there were no delusions reported or noted. She did not report any auditory or visual hallucinations. Attention and concentration were improving and memory was more reliable but none were formally tested. She is alert and oriented times 3. Insight and judgment are improving and impulse control is limited. Vitals/I&O/Wt Last Vital Signs Temp 98.0 F 09/15/22 06:00 Pulse 81 09/15/22 06:00 Resp 17 09/15/22 08:18 BP 126/79 09/15/22 06:00 Pulse Ox 97 09/15/22 06:00 O2 Del Method Room Air 09/15/22 06:00 09/14/22 09/15/22 09/15/22 22:59 06:59 14:59 Output Total 0 / 5 Balance 0 / 1275 Weight last 48 hrs Weight 99.79 kg Data NPU 09/13/22 05:31 09/13/22 05:31 A&P Assessment and plan (1) Fracture of right wrist: (2) Depression: (3) Suicidal ideation: (4) Methamphetamine use disorder, severe: (5) Cannabis use disorder: Plan This is a 32-year-old white female with a long history of mental health and addiction issues who presented to the hospital with a broken right hand reporting suicidal and homicidal thoughts, medications were not working well. 1. Continue current medication. Started BuSpar 10 mg p.o. twice daily increased and Invega 6 mg p.o. every morning and consider the injectable if appropriate. BuSpar to 15 mg p.o. 3 times daily and added Neurontin 100 mg p.o. 3 times daily. 2. Continue one-to-one given the bandage until Ortho can consider alternatives. Appreciate ortho treatment. 3. Encourage individual, group and milieu therapies. 4. Encourage sober living treatment after discharge at the hospital care to which she is willing to commit. Involuntary Hold Information 96 Hour Hold: 96 Hour Involuntary Admission: No Attestations NPU Medical Necessity Statement*: Inpatient hospitalization is medically necessary and the clinically appropriate intervention at this time. We will monitor/initiate medications and make zepeda ges as indicated. Likely length of stay 1 days. Coding Level of Care Code Acute Code for [facility] Fwd Diagnoses Fracture of right wrist S62.101A Depression F32.A Suicidal ideation R45.851 Methamphetamine use disorder, severe F15.20 Cannabis use disorder F12.90
[2022-09-15] MEDS: nicotine 2 mg Gum BUCCAL (19:07)
[2022-09-15] MEDS: levETIRAcetam 500 mg Tablet 1000 MG PO (20:07)
[2022-09-15 20:45] LABS: Bilirubin Urine Neg (Negative); Blood Urine 3+ (Negative); Glucose Urine UA Norm (Normal); Ketones Urine Negative (Negative); Leukocyte Esterase Urine Negative (Negative); Nitrate Urine Negative (Negative); Protein Urine Neg (Negative); Urine Appearance Hazy (CLEAR); Urine Color Yellow (Yellow); Urobilinogen Urine Norm (Negative); WBC Urine 0-4 /hpf (0-5); pH Urine 5 (5-7)
[2022-09-15 20:46] LABS: Add Urine Culture? No; Bacteria Urine TRACE /hpf; RBC Urine 80-100 /hpf (0-2)
--- NOTE | 2022-09-15 21:14 | PC.NURSE ---
Patient reporting pain of 9/10 in right arm. Ice is only helping slightly, per patient. Administered oxycodone to patient. Encouraged rest. Will continue to monitor.
[2022-09-16] MEDS: HYDROcodone-acetaminophen 5-325 mg Tablet PO ×2 (02:27→10:31)
[2022-09-16 05:49] VITALS: RESP 16
[2022-09-16] MEDS: oxyCODONE 5 mg IR Tab/Cap 10 MG PO ×2 (05:49→12:45)
[2022-09-16 06:00] VITALS: BP 115/79; PULSE 103; RESP 18; TEMP 37; O2SAT 97
[2022-09-16] MEDS: nicotine 4 mg lozenge MUCOUS MEM ×4 (07:29→12:45)
[2022-09-16] MEDS: levETIRAcetam 500 mg Tablet PO (08:50)
[2022-09-16] MEDS: atomoxetine 40 mg Capsule PO (08:50)
[2022-09-16] MEDS: bisacodyl 5 mg Tablet 10 MG PO (08:50)
[2022-09-16] MEDS: gabapentin 100 mg Capsule PO ×2 (08:51→14:26)
[2022-09-16] MEDS: polyethylene glycol 3350 Pkt 17 gm PO (08:51)
[2022-09-16] MEDS: BuSPIRONE 10 mg Tablet 15 MG PO ×2 (08:51→14:24)
[2022-09-16] MEDS: pantoprazole DR 40 mg Tablet PO (08:51)
[2022-09-16] MEDS: paliperidone ER 6 mg Tablet PO (08:51)
[2022-09-16] MEDS: quetiapine 100 mg Tablet PO (08:56)
[2022-09-16 12:42] VITALS: BP 115/79; PULSE 103; RESP 18; TEMP 37; O2SAT 97
[2022-09-16 12:45] VITALS: RESP 17
--- NOTE | 2022-09-16 13:53 | PC.NURSE ---
BLANKET AND HOME MED BROUGHT IN BY PATIENT WERE GIVEN TO NAYAN HERRMANN PER PATIENT REQUEST, HOME MED WAS HYDROCODONE, WITNESSED BY YESY KAISER
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
== END 2022-09-16 15:07 | disposition home or self-care (01) | DRG 876 ==
LOC: ER 23:33 → NP 23:34 → CSU 09-11 15:31 → MEDSURG 09-12 05:12 → NP 09-13 15:48
PROVIDERS: Anesthesiology; Internal Medicine; Orthopaedic Surgery; Admitting Provider Psychiatry & Neurology Psychiatry; Emergency Provider Emergency Medicine; Visit Provider Psychiatry & Neurology Psychiatry
PROC: 0PSH04Z Reposition Right Radius with Internal Fixation Device, Open Approach (ICD-10-PCS; principal; 2022-09-12 15:05)
DX: F32.A Depression, unspecified (principal); S52.571A Other intraarticular fracture of lower end of right radius, initial encounter for closed fracture; F15.20 Other stimulant dependence, uncomplicated; R45.851 Suicidal ideations; S52.614A Nondisplaced fracture of right ulna styloid process, initial encounter for closed fracture; F60.3 Borderline personality disorder; R45.850 Homicidal ideations; W13.8XXA Fall from, out of or through other building or structure, initial encounter; E86.0 Dehydration; I95.1 Orthostatic hypotension; F12.10 Cannabis abuse, uncomplicated; F17.200 Nicotine dependence, unspecified, uncomplicated; Z81.8 Family history of other mental and behavioral disorders
CPT/HCPCS: 36415; 73100; 76000; 80048; 80053; 80306; 80307; 81001; 81025; 84443; 84484; 84702; 84703; 85007; 85025; 85027; 93005; 93306; 96374; 96375; 97150; 97165; 99285; C1713; J0690; J1100; J1170; J1885; J2405; J2704; J2795; J3010; J3490; J7030

== ENCOUNTER → 2022-09-12 06:00 | Day surgery (SDC) | payer BC, SELFPAY | PROVIDERS: Visit Provider Orthopaedic Surgery | DX: Z53.9 Procedure and treatment not carried out, unspecified reason (principal) | CPT/HCPCS: J1100; J2250; J2405; J2704; J2795; J3010; J3490 ==

== ENCOUNTER → 2022-09-18 15:08 | Outpatient (BNVA) | payer MEDICAID, SELFPAY | PROVIDERS: Visit Provider Orthopaedic Surgery | DX: Z98.890 Other specified postprocedural states (principal); Z87.81 Personal history of (healed) traumatic fracture; K75.9 Inflammatory liver disease, unspecified | CPT/HCPCS: 99024 ==

== ENCOUNTER 2022-09-18 15:57 | Outpatient (CLI) | payer MEDICAID, SELFPAY | END 2022-09-18 15:58 | disposition home or self-care (01) | LOC: SPT 15:57 | PROVIDERS: Visit Provider Orthopaedic Surgery | DX: Z46.89 Encounter for fitting and adjustment of other specified devices (principal); S52.591D Other fractures of lower end of right radius, subsequent encounter for closed fracture with routine healing; X58.XXXD Exposure to other specified factors, subsequent encounter | CPT/HCPCS: 97760; L3982 ==

== ENCOUNTER → 2022-09-25 13:56 | Outpatient (BNVA) | payer MEDICAID, SELFPAY | PROVIDERS: Visit Provider Orthopaedic Surgery | DX: Z87.81 Personal history of (healed) traumatic fracture (principal); Z98.890 Other specified postprocedural states | CPT/HCPCS: 99024 ==

== ENCOUNTER → 2022-12-11 15:25 | Outpatient (BNVA) | payer BC, SELFPAY | PROVIDERS: Visit Provider Nurse Practitioner | DX: Z79.899 Other long term (current) drug therapy (principal); F11.20 Opioid dependence, uncomplicated; F17.200 Nicotine dependence, unspecified, uncomplicated; F43.10 Post-traumatic stress disorder, unspecified; F15.20 Other stimulant dependence, uncomplicated; F12.90 Cannabis use, unspecified, uncomplicated | CPT/HCPCS: 80061; 83036 ==